=== PATIENT | male | born 1935 | race Caucasian/White ===

== ENCOUNTER 2016-09-12 18:33 | Inpatient (IN) | payer MEDICARE, OTHER ==
[~2016-09-12] VITALS: Ht 180.3 cm; Wt 81.6 kg
[~2016-09-12 18:33] MED LIST: ASPI81TA82 PO; CLON0.5T PO; CYMB60CA PO; DOCU1CAP39 PO; FINA5TAB77 PO; FLAG500T PO; GNP3TAB PO; HYDR-3533 PO; LISI2.5T55 PO; LOPE2TAB3 PO; METO25 PO; OMEP20TA PO; POLY119S PO; REME15TA PO; SILV1CRE59 TOP; SIMV20 PO; SUPETAB30 PO; TIMO0.5S29 EACH EYE; TRAV0.006 EACH EYE; VITA-13 PO; VITA-83 PO; ZINC220 PO
[2016-09-12 18:46] VITALS: BP 115/57; PULSE 80; RESP 16; TEMP 97.3; O2SAT 94
--- NOTE | 2016-09-12 18:47 | PD ---
HPI Chief Complaint: Respiratory Distress Time Seen by Provider: 18:47 Travel History International Travel<30 days: No Contact w/Intl Traveler<30days: No History of Present Illness HPI 81-year-old male with history of dementia, hypertension, hyperlipidemia is brought to the emergency room by EMS for evaluation of foreign body aspiration. Per EMS report the patient was eating food at his [facility] facility when he began to choke. Once EMS arrived on scene they perform the Heimlich maneuver and finger swipe technique which aided the patient to cough out the foreign body. Per EMS report he has been breathing without difficulty since the foreign body came out, oxygen saturation is of remained 94% on room air. The patient has dementia and is oriented to person only at baseline, per [facility] staff the patient is currently at his mental status baseline. He is confused and does not answer questions. He is unable to provide any meaningful history. PFSH Past Medical History Alzheimer's Disease: Yes Asthma: No Anxiety: Yes Depression: Yes Heart Rhythm Problems: No Cardiovascular Problems: Yes Chest Pain: No Congestive Heart Failure: No COPD: No Diabetes: No Diminished Hearing: Yes Endocrine: No Fibromyalgia: Yes GERD: Yes Glaucoma: Yes Genitourinary: Yes (PROSTATE) Hypertension: Yes Musculoskeletal: Yes (LAMINECTOMY) Neurologic: Yes (NEUROPATHY ) Psychiatric: No Thyroid Disease: No Past Surgical History Other Surgery: Yes (PENAL PROSTHETIC) Social History Alcohol Use: No Tobacco Use: No Allergies-Medications (Allergen,Severity, Reaction): Coded Allergies: No Known Allergies (Verified , 06/13/15) Reported Meds & Prescriptions Reported Meds & Active Scripts Active Reported Lortab (Hydrocodone-Acetaminophen) 5-325 Mg Tab 1 Tab PO Q4H PRN Ivermectin 3 Mg Tab 1 Tab PO DAILY Hydroxyzine HCl 25 Mg Tab 25 Mg PO TID PRN Elimite Topical (Permethrin) 5% Cream 1 Applic TOPICAL ONCE Benadryl Allergy (Diphenhydramine HCl) 25 Mg Tab 25 Mg PO Q6H PRN Depakote Sprinkles (Divalproex Sodium) 125 mg Cap 125 Mg PO TID Metoprolol Tartrate 25 Mg Tab 25 Mg PO BID Clonazepam 0.5 Mg Tab 0.5 Mg PO BID Vitamin B-6 (Pyridoxine HCl) 200 Mg Tab 200 Mg PO DAILY Trazodone (Trazodone HCl) 150 Mg Tab 150 Mg PO HS Travatan Z Opth Drops (Travoprost) 0.004 % Soln 1 Drop EACH EYE HS Timolol Opth Drops 0.5 % Soln 1 Drop EACH EYE BID Simvastatin 20 Mg Tab 20 Mg PO DAILY Prednisone 10 Mg Tab 10 Mg PO DAILY Potassium Chloride Liq (Potassium Chloride) 20 Meq/15 Ml Soln 20 Meq PO DAILY Miralax Powder (Polyethylene Glycol 3350 Powder) 17 Gm Powd 17 Gm PO DAILY Mix and dissolve one measuring cap-ful (17 grams) in water or juice. Multiple Vitamin 1 Tab 1 Tab PO DAILY Melatonin 5 Mg Tab 3 Mg PO HS Lasix (Furosemide) 40 Mg Tab 40 Mg PO DAILY Finasteride 5 Mg Tab 5 Mg PO DAILY Do not crush. Cymbalta DR (Duloxetine HCl) 60 Mg Capdr 60 Mg PO DAILY Colchicine 0.6 Mg Cap 0.6 Mg PO DAILY Colace (Docusate Sodium) 100 Mg Cap 100 Mg PO BID PRN Vitamin D (Cholecalciferol) 1,000 Unit Tab 2,000 Units PO DAILY Aspirin 81 Mg Chew 81 Mg CHEW DAILY Review of Systems ROS Limitations: Poor Historian Physical Exam Exam Limitations: Poor Historian (dementia) Narrative GENERAL: Well-nourished and well-developed elderly male patient in no acute distress. SKIN: Warm and dry without any obvious rashes or lesions. HEAD: Normocephalic and atraumatic. EYES: No injection, drainage, or hyphema noted. PERRLA. EOMI. ENT: No nasal drainage noted. Oropharynx is clear. NECK: Supple and the trachea is midline. CARDIOVASCULAR: Regular rate and rhythm. RESPIRATORY: Decreased breath sounds throughout, although poor patient effort. No accessory muscle use, wheezing, rhonchi, or crackles. GASTROINTESTINAL: Abdomen is soft, non-tender, and nondistended. MUSCULOSKELETAL: No obvious deformities, swelling, cyanosis, or ecchymosis is present throughout the upper and lower extremities. NEUROLOGICAL: Awake. Normal speech and gait. Cranial nerves are grossly intact. Data Data Last Documented VS Vital Signs Date Time Temp Pulse Resp B/P Pulse Ox O2 Delivery O2 Flow Rate FiO2 09/12/16 21:12 70 20 86/52 98 Nasal Cannula 5 09/12/16 18:51 98.5 Orders Electrocardiogram (09/12/16 18:46) Chest, Pa & Lat (09/12/16 18:46) Soft Tissue Neck (09/12/16 ) Complete Blood Count With Diff (09/12/16 19:09) Comprehensive Metabolic Panel (09/12/16 19:09) Iv Access Insert/Monitor (09/12/16 19:09) Ecg Monitoring (09/12/16 19:09) Oximetry (09/12/16 19:09) Sodium Chloride 0.9% Flush (Ns Flush) (09/12/16 19:15) B-Type Natriuretic Peptide (09/12/16 19:31) Troponin I (09/12/16 18:45) Urinalysis - C+S If Indicated (09/12/16 20:46) Cath For Specimen (09/12/16 20:57) Ct Thorax/ Chest W Iv Contrast (09/12/16 21:13) Ct Brain W/O Iv Contrast(Rout) (09/12/16 21:13) Ct Soft Tiss Neck W/O Iv Cont (09/12/16 ) Labs Laboratory Tests Test 09/12/16 18:45 White Blood Count 16.1 TH/MM3 Red Blood Count 4.78 MIL/MM3 Hemoglobin 13.5 GM/DL Hematocrit 40.7 % Mean Corpuscular Volume 85.2 FL Mean Corpuscular Hemoglobin 28.2 PG Mean Corpuscular Hemoglobin 33.1 % Concent Red Cell Distribution Width 13.4 % Platelet Count 357 TH/MM3 Mean Platelet Volume 8.8 FL Neutrophils (%) (Auto) 53.5 % Lymphocytes (%) (Auto) 32.2 % Monocytes (%) (Auto) 7.4 % Eosinophils (%) (Auto) 6.5 % Basophils (%) (Auto) 0.4 % Neutrophils # (Auto) 8.6 TH/MM3 Lymphocytes # (Auto) 5.2 TH/MM3 Monocytes # (Auto) 1.2 TH/MM3 Eosinophils # (Auto) 1.0 TH/MM3 Basophils # (Auto) 0.1 TH/MM3 CBC Comment AUTO DIFF Differential Total Cells 100 Counted Neutrophils % (Manual) 52 % Band Neutrophils % 1 % Lymphocytes % 31 % Monocytes % 7 % Eosinophils % 5 % Basophils % 1 % Neutrophils # (Manual) 9.0 TH/MM3 Metamyelocytes 1 % Myelocytes 2 % Differential Comment FINAL DIFF MANUAL Platelet Estimate HIGH Platelet Morphology Comment NORMAL Red Cell Morphology Comment NORMAL Sodium Level 140 MEQ/L Potassium Level 4.5 MEQ/L Chloride Level 103 MEQ/L Carbon Dioxide Level 23.9 MEQ/L Anion Gap 13 MEQ/L Blood Urea Nitrogen 30 MG/DL Creatinine 1.97 MG/DL Estimat Glomerular Filtration 33 ML/MIN Rate Random Glucose 157 MG/DL Calcium Level 8.4 MG/DL Total Bilirubin 0.5 MG/DL Aspartate Amino Transf 40 U/L (AST/SGOT) Alanine Aminotransferase 35 U/L (ALT/SGPT) Alkaline Phosphatase 75 U/L Troponin I LESS THAN 0.02 NG/ML B-Type Natriuretic Peptide 42 PG/ML Total Protein 7.7 GM/DL Albumin 3.5 GM/DL [facility] Medical Decision Making Medical Screen Exam Complete: Yes Emergency Medical Condition: Yes Differential Diagnosis Foreign body aspiration versus aspiration pneumonia versus food bolus Narrative Course 81-year-old male is brought to the emergency department for evaluation status post foreign body aspiration with removal through Heimlich maneuver. Patient is afebrile, vital signs are stable. Labs have been ordered and are pending. Chest x-ray as well as x-ray of the neck has been ordered. Chest x-ray shows mild pulmonary edema, otherwise unremarkable. Soft tissue x-ray of the neck is unremarkable. CBC shows elevated white blood cell count of 16.1, likely stress reaction. CMP shows renal insufficiency with a creatinine of 1.97, even 30, GFR 33. This is elevated from previous lab values at our facility there were performed a year ago. Troponin is less than 0.02. BNP is 42. 2035 The patient's family member arrives to room and reports patient is much more confused than his baseline. Reports he is normally conversant - admits he is not oriented to time or place typically. My attending physician Dr. Vsaquez spoke with Antolin the nurse in charge over at the patient's [place] [facility] facility who reports that the patient was eating and began to choke, stating he became apneic and cyanotic for a few minutes until EMS performed the Heimlich maneuver and he spit up about a quarter sized amount of food. Antolin also agrees that the patient is slightly more altered than his baseline. A head CT and urinalysis have also been added to the work-up. The patient has had a possible apneic event secondary to foreign body aspiration and has altered mental status from his baseline. His renal function is noted to be slightly elevated, it is unclear whether this is acute or subacute as the patient does take Lasix 40 mg daily for lower extremity edema. He doesn't have any anion gap or change in bicarb to suggest a cardiac event. He likely suffered temporary hypoxia secondary to foreign body aspiration. In any event, he is altered, his renal function is elevated, and his chest x-ray reveals pulmonary edema. 2100 Patient having hemoptysis and his blood pressure has dropped. Care of patient assumed by my attending physician Dr. Vasquez. Hali Snow Sep 12, 2016 18:47
[2016-09-12 18:51] VITALS: BP 115/57; PULSE 79; RESP 18; TEMP 98.5; O2SAT 95
--- NOTE | 2016-09-12 18:55 | PD ---
Physical Exam Date Seen by Provider: Sep 12, 2016 Narrative I, Dr. Dean, have reviewed the advance practice practitioner's documentation and am in agreement, met with the patient face to face, made the diagnosis, and the medical decision making was done by me. *My assessment and Findings: The patient is resting comfortably on the stretcher with no respiratory distress. Data Data Last Documented VS Vital Signs Date Time Temp Pulse Resp B/P Pulse Ox O2 Delivery O2 Flow Rate FiO2 09/12/16 18:51 79 18 94 Non-Rebreather 6 09/12/16 18:46 97.3 115/57 Orders Electrocardiogram (09/12/16 18:46) Chest, Pa & Lat (09/12/16 18:46) MDM Supervised Visit with PATRICIA: Yes Keyla Dean MD Sep 12, 2016 18:55
[2016-09-12] MEDS ORDERED: SODIUM CHLORIDE 0.9% FLUSH 5 ML FLUSH IVF PRN (19:15)
[2016-09-12 19:22] LABS: AUTOMATED NEUTROPHIL # 8.6 TH/MM3 (1.8-7.7); BASOPHIL # 0.1 TH/MM3 (0-0.2); BASOPHIL % 0.4 % (0.0-2.0); EOSINOPHIL % 6.5 % (0.0-4.0); HEMATOCRIT 40.7 % (39.0-51.0); LYMPH % 32.2 % (9.0-44.0); LYMPHOCYTE # 5.2 TH/MM3 (1.0-4.8); MEAN CELL VOLUME 85.2 FL (80.0-100.0); MEAN CORPUSCULAR HEMOGLOBIN 28.2 PG (27.0-34.0); MEAN CORPUSCULAR HGB CONC 33.1 % (32.0-36.0); MONO % 7.4 % (0.0-8.0); NEUT % 53.5 % (16.0-70.0); PLATELET COUNT 357 TH/MM3 (150-450); RED BLOOD COUNT 4.78 MIL/MM3 (4.50-5.90); RED CELL DISTRIBUTION WIDTH 13.4 % (11.6-17.2); WHITE BLOOD COUNT 16.1 TH/MM3 (4.0-11.0)
--- NOTE | 2016-09-12 19:26 | RADRPT ---
EXAM DATE/TIME: 09/12/2016 19:09 [facility] COMPARISON: No previous studies available for comparison. INDICATIONS : Possible foreign body, aspiration MEDICAL HISTORY : Hypertension. Alzheimers SURGICAL HISTORY : None. ENCOUNTER: Initial ACUITY: 1 day PAIN SCORE: 3/10 LOCATION: Bilateral chest FINDINGS: Hazy infiltrates seen diffusely of both lungs suggesting mild pulmonary edema. Heart size upper limit s of normal. No dense or confluent consolidation. No large effusion seen. No pneumothorax. CONCLUSION: Mild pulmonary edema. Danie Vera MD on September 12, 2016 at 19:25 Board Certified Radiologist. This report was verified electronically.
--- NOTE | 2016-09-12 19:29 | RADRPT ---
EXAM DATE/TIME: 09/12/2016 19:11 [facility] COMPARISON: No previous studies available for comparison. INDICATIONS : Possible Foreign Body, Aspiration MEDICAL HISTORY : Hypertension. Alzheimers SURGICAL HISTORY : None. ENCOUNTER: Initial ACUITY: One day PAIN SCORE: 4/10 LOCATION: Bilateral neck FINDINGS: Two view examination of the soft tissues of the neck demonstrates the hypopharyngeal airway to have a grossly normal configuration. The trachea is midline. No radiopaque foreign bodies are seen. There is severe anterior spurring of the cervical spine at C3/C4 and C4/C5. Atherosclerotic calcifica tion seen of both carotid bifurcations. CONCLUSION: No foreign body or other acute soft tissue abnormality demonstrated of the neck. Danie Vera MD on September 12, 2016 at 19:26 Board Certified Radiologist. This report was verified electronically.
[2016-09-12] MEDS ORDERED: COLC1CAP3 PO (19:31)
[2016-09-12] MEDS ORDERED: HYDR-3533 PO (19:31)
[2016-09-12] MEDS ORDERED: TIMO0.5S30 EACH EYE (19:31)
[2016-09-12] MEDS ORDERED: FURO1TAB60 PO (19:31)
[2016-09-12] MEDS ORDERED: FINA5TAB2 PO (19:31)
[2016-09-12] MEDS ORDERED: COLA100C3 PO (19:31)
[2016-09-12] MEDS ORDERED: ASPI81CH CHEW (19:31)
[2016-09-12] MEDS ORDERED: PERM5CRE11 TOPICAL (19:31)
[2016-09-12] MEDS ORDERED: BENA25TA3 PO (19:31)
[2016-09-12] MEDS ORDERED: HYDR-3133 PO (19:31)
[2016-09-12] MEDS ORDERED: PYRI1TAB2 PO (19:31)
[2016-09-12] MEDS ORDERED: TRAV0.00 EACH EYE (19:31)
[2016-09-12] MEDS ORDERED: METO25TA3 PO (19:31)
[2016-09-12] MEDS ORDERED: SIMV20TA PO (19:31)
[2016-09-12] MEDS ORDERED: IVER5TAB PO (19:31)
[2016-09-12] MEDS ORDERED: MIRA33504 PO (19:31)
[2016-09-12] MEDS ORDERED: PRED10 PO (19:31)
[2016-09-12] MEDS ORDERED: TRAZ150T75 PO (19:31)
[2016-09-12] MEDS ORDERED: VITA100064 PO (19:31)
[2016-09-12] MEDS ORDERED: DIVA125C PO (19:31)
[2016-09-12] MEDS ORDERED: CYMB60CA PO (19:31)
[2016-09-12] MEDS ORDERED: MULTTAB67 PO (19:31)
[2016-09-12] MEDS ORDERED: CLON0.5T PO (19:31)
[2016-09-12] MEDS ORDERED: POTA10SO12 PO (19:31)
[2016-09-12] MEDS ORDERED: MELA5TAB15 PO (19:31)
[2016-09-12 19:41] LABS: HEMO FLAGS AUTO DIFF
[2016-09-12 19:55] LABS: ANION GAP 13 MEQ/L (5-15); AST (GOT) 40 U/L (15-37); BICARBONATE 23.9 MEQ/L (21.0-32.0); BLOOD UREA NITROGEN 30 MG/DL (7-18); CHLORIDE 103 MEQ/L (98-107); GLOMERULAR FILTRATION RATE 33 ML/MIN (>89); POTASSIUM 4.5 MEQ/L (3.5-5.1); SODIUM (NA) 140 MEQ/L (136-145)
[2016-09-12 20:00] VITALS: BP 88/54; PULSE 78; RESP 20; O2SAT 96
[2016-09-12 20:00] LABS: ALKALINE PHOSPHATASE 75 U/L (45-117); ALT (GPT) 35 U/L (12-78); TOTAL BILIRUBIN ADULT 0.5 MG/DL (0.2-1.0)
[2016-09-12 20:30] LABS: BANDS 1 % (0-6); BASOPHILS 1 % (0-2); EOSINOPHILS 5 % (0-4); METAMYELOCYTES 1 % (0-1); MYELOCYTES 2 % (0-0); POLYS (SEG NEUTROPHILS) 52 % (16-70); WBC DIFF SAMPLE 100
[2016-09-12 20:31] LABS: PLATELET ESTIMATE SMEAR HIGH (NORMAL); PLATELET MORPHOLOGY NORMAL (NORMAL); SCAN/DIFF FINAL DIFF MANUAL
[2016-09-12 21:00] VITALS: BP 68/45; PULSE 76; RESP 20; O2SAT 94
[2016-09-12 21:12] VITALS: BP 86/52; PULSE 70; RESP 20; O2SAT 95; O2SAT 98
[2016-09-12 21:25] VITALS: BP 85/50; PULSE 72; RESP 18; O2SAT 96
[2016-09-12] MEDS ORDERED: PIPERACIL-TAZO 2.25 GM PREMIX 50 ML IV ONE (21:30)
[2016-09-12] MEDS ORDERED: PANTOPRAZOLE INJ 80 MG in SODIUM CHLORIDE 0.9% INJ 35 ML IV ONE (21:30)
[2016-09-12] MEDS ORDERED: SODIUM CHLOR 0.9% 250 ML INJ 250 ML IV ONE (21:30)
[2016-09-12] MEDS ORDERED: VANCOMYCIN INJ 1,500 MG in SODIUM CHLORID 0.9% 500 ML INJ 500 ML IV SCH (21:30)
[2016-09-12] MEDS ORDERED: PANTOPRAZOLE INJ 80 MG in SODIUM CHLORIDE 0.9% INJ 100 ML IV SCH (21:30)
--- NOTE | 2016-09-12 21:32 | PD ---
Data Data Last Documented VS Vital Signs Date Time Temp Pulse Resp B/P Pulse Ox O2 Delivery O2 Flow Rate FiO2 09/12/16 21:25 72 18 85/50 96 Nasal Cannula 5 09/12/16 18:51 98.5 Orders Electrocardiogram (09/12/16 18:46) Chest, Pa & Lat (09/12/16 18:46) Soft Tissue Neck (09/12/16 ) Complete Blood Count With Diff (09/12/16 19:09) Comprehensive Metabolic Panel (09/12/16 19:09) Iv Access Insert/Monitor (09/12/16 19:09) Ecg Monitoring (09/12/16 19:09) Oximetry (09/12/16 19:09) Sodium Chloride 0.9% Flush (Ns Flush) (09/12/16 19:15) B-Type Natriuretic Peptide (09/12/16 19:31) Troponin I (09/12/16 18:45) Urinalysis - C+S If Indicated (09/12/16 20:46) Cath For Specimen (09/12/16 20:57) Ct Thorax/ Chest W Iv Contrast (09/12/16 21:13) Ct Brain W/O Iv Contrast(Rout) (09/12/16 21:13) Ct Soft Tiss Neck W/O Iv Cont (09/12/16 ) Type And Screen (09/12/16 21:18) Blood Product Administration .UPON TRANSFUSION (09/12/16 21:18) Sodium Chlor 0.9% 250 Ml Inj (Ns 250 Ml (09/12/16 21:30) Piperacil-Tazo 2.25 Gm Premix (Zosyn 2.2 (09/12/16 21:30) Vancomycin Inj (Vancomycin Inj) (09/12/16 21:30) NPO (09/12/16 21:29) Pantoprazole Inj (Protonix Inj) (09/12/16 21:30) Pantoprazole Inj (Protonix Inj) (09/12/16 21:30) Lactic Acid (09/12/16 21:32) Iodixanol 320 Inj (Rad Ct) (Visipaque 32 (09/12/16 22:11) Urine Culture (09/12/16 22:45) Coag Profile (09/12/16 23:27) Admit Order (Ed Use Only) (09/12/16 23:43) Labs Laboratory Tests Test 09/12/16 09/12/16 09/12/16 18:45 21:20 22:45 White Blood Count 16.1 TH/MM3 Red Blood Count 4.78 MIL/MM3 Hemoglobin 13.5 GM/DL Hematocrit 40.7 % Mean Corpuscular Volume 85.2 FL Mean Corpuscular Hemoglobin 28.2 PG Mean Corpuscular Hemoglobin 33.1 % Concent Red Cell Distribution Width 13.4 % Platelet Count 357 TH/MM3 Mean Platelet Volume 8.8 FL Neutrophils (%) (Auto) 53.5 % Lymphocytes (%) (Auto) 32.2 % Monocytes (%) (Auto) 7.4 % Eosinophils (%) (Auto) 6.5 % Basophils (%) (Auto) 0.4 % Neutrophils # (Auto) 8.6 TH/MM3 Lymphocytes # (Auto) 5.2 TH/MM3 Monocytes # (Auto) 1.2 TH/MM3 Eosinophils # (Auto) 1.0 TH/MM3 Basophils # (Auto) 0.1 TH/MM3 CBC Comment AUTO DIFF Differential Total Cells 100 Counted Neutrophils % (Manual) 52 % Band Neutrophils % 1 % Lymphocytes % 31 % Monocytes % 7 % Eosinophils % 5 % Basophils % 1 % Neutrophils # (Manual) 9.0 TH/MM3 Metamyelocytes 1 % Myelocytes 2 % Differential Comment FINAL DIFF MANUAL Platelet Estimate HIGH Platelet Morphology Comment NORMAL Red Cell Morphology Comment NORMAL Sodium Level 140 MEQ/L Potassium Level 4.5 MEQ/L Chloride Level 103 MEQ/L Carbon Dioxide Level 23.9 MEQ/L Anion Gap 13 MEQ/L Blood Urea Nitrogen 30 MG/DL Creatinine 1.97 MG/DL Estimat Glomerular Filtration 33 ML/MIN Rate Random Glucose 157 MG/DL Calcium Level 8.4 MG/DL Total Bilirubin 0.5 MG/DL Aspartate Amino Transf 40 U/L (AST/SGOT) Alanine Aminotransferase 35 U/L (ALT/SGPT) Alkaline Phosphatase 75 U/L Troponin I LESS THAN 0.02 NG/ML B-Type Natriuretic Peptide 42 PG/ML Total Protein 7.7 GM/DL Albumin 3.5 GM/DL Lactic Acid Level 3.4 mmol/L Blood Type B POSITIVE Antibody Screen NEGATIVE Blood Bank Comment Urine Color YELLOW Urine Turbidity CLEAR Urine pH 5.5 Urine Specific [place] 1.013 Urine Protein 30 mg/dL Urine Glucose (UA) NEG mg/dL Urine Ketones NEG mg/dL Urine Occult Blood NEG Urine Nitrite NEG Urine Bilirubin NEG Urine Urobilinogen LESS THAN 2.0 MG/DL Urine Leukocyte Esterase MOD Urine RBC 2 /hpf Urine WBC 19 /hpf Urine WBC Clumps RARE Urine Squamous Epithelial <1 /hpf Cells Urine Bacteria OCC /hpf Urine Hyaline Casts 5 /lpf Microscopic Urinalysis Comment CULTURE INDICATED MDM Medical Record Reviewed: Yes Supervised Visit with PATRICIA: Yes Interpretation(s) CBC & BMP Diagram 09/12/16 18:45 LFTs normal Tn < 0.02 BNP 42 Lactic acid 3.4 Troponin 1.0 Urinalysis UTI present Last [address] 09/12/162112 Signed Impressions: Service Date/Time: Monday, September 12, 2016 22:00 - CONCLUSION: No acute intracranial abnormality. Moderate ventriculomegaly again noted, stable. Chronic right-sided sinusitis. Danie Vera MD Chest CT 09/12/162112 Signed Impressions: Service Date/Time: Monday, September 12, 2016 22:09 - CONCLUSION: 1. Patchy alveolar infiltrates of both lungs, nonspecific. Aspiration, noncardiogenic pulmonary edema and pulmonary hemorrhage would be in the differential. 2. No pneumothorax or pneumomediastinum. 3. Coronary artery calcification. Danie Vera MD Chest X-Ray 09/12/16 1846 Signed Impressions: Service Date/Time: Monday, September 12, 2016 19:09 - CONCLUSION: Mild pulmonary edema. Danie Vera MD Soft Tissue Neck X-Ray 09/12/16 0000 Signed Impressions: Service Date/Time: Monday, September 12, 2016 19:11 - CONCLUSION: No foreign body or other acute soft tissue abnormality demonstrated of the neck. Danie Vera MD Neck CT 09/12/16 0000 Signed Impressions: Service Date/Time: Monday, September 12, 2016 22:00 - CONCLUSION: Neck soft tissues within normal limits. Danie Vera MD Narrative Course The patient was examined by me at about 7:30 PM. At that time he was awake and alert to himself. He is able to answer questions appropriately. He at baseline is unaware of the day or his location. Nonetheless according to the former and according to [facility] personnel the patient is somewhat talkative and able to partake in conversations normally. He is otherwise wheelchair-bound, incontinent of stool and has been choking while eating for the past several months. According to the nurse at his SNF the patient was eating dinner at around 6:30 PM and while trying to drink a glass of liquid accidentally spilled it upon himself. He was approached and was unable to speak. He nodded his head stating he did not feel right. The patient then became unresponsive. CPR followed shortly thereafter for approximately 10 minutes. Multiple attempts at a Heimlich maneuver were performed unsuccessfully. When EMS arrived a small bolus of food was removed with a finger sweep and then a copious volume of secretions were collected. The patient according to the [facility] RN pt was unresponsive and apparently cyanotic for about 10 minutes or so. When EMS arrived on scene the patient had a sinus rhythm and normal blood pressure. He was advised by RN personnel that the patient was at his baseline mental status. This information was passed along by EMS providers to me. Patient began vomiting or coughing up blood, bright red blood, multiple times while in the ER. He also had an episode of hypotension to about 60/30. We initiated crystalloid resuscitation. Lactic acid was drawn. Type and screen was drawn. Stat head neck and chest CTs were added as were broad-spectrum empiric antibiotics bilateral large bore IVs, Protonix while attending to the power of criminal defense attorney's needs. CT control room called at 21:30 for stat CTs. The patient's former informed me that he is a DNR. Fortunately the patient had a good response to 500 cc normal saline. In the ER, a course of at least 5 hours, the blood pressure improved to about 120 somewhat gradually. Episodes of hemoptysis resolved as well. Critical Care Narrative Aggregate critical care time was 90 minutes. Time to perform other separately billable procedures was not included in the critical care time. My time did not include minutes spent treating any other patients simultaneously or on activities that did not directly contribute to the patient's treatment. The services I provided to this patient were to treat and/or prevent clinically significant deterioration that could result in: cardioPulmonary arrest, hypoxia I provided critical care services requiring my management, as noted below: Chart data review, documentation time, medication orders and management, vital sign assessments/reviewing monitor data, ordering and reviewing lab tests, ordering and interpreting/reviewing x-rays and diagnostic studies, care of the patient and discussion of the patient with the admitting physicians. Critical care Sepsis Criteria Severe Sepsis (+one): Hypotension, Lactate >2 Diagnosis Primary Impression: Cardiopulmonary arrest Additional Impressions: Hypoxic episode Pulmonary hemorrhage UTI (urinary tract infection) Qualified Code: N39.0 - Urinary tract infection without hematuria, site unspecified Admitting Information Admitting Physician Requests: Admit Efrem Vasquez MD Sep 12, 2016 21:32
[2016-09-12] MEDS ORDERED: IODIXANOL 320 MG/ML 10 ML VIAL (for Rad CT) IV ONE (22:11)
--- NOTE | 2016-09-12 22:23 | RADRPT ---
EXAM DATE/TIME: 09/12/2016 22:00 [facility] COMPARISON: CT BRAIN W/O CONTRAST, June 13, 2015, 17:22. INDICATIONS : Altered mental status. RADIATION DOSE: 61.74 CTDIvol (mGy) MEDICAL HISTORY : Hypertension. Alzheimer's. Fibromyalgia. SURGICAL HISTORY : None. ENCOUNTER: Initial ACUITY: 1 day PAIN SCALE: 0/10 LOCATION: cranial TECHNIQUE: Multiple contiguous axial images were obtained of the head. Using automated exposure control and adj ustment of the mA and/or kV according to patient size, radiation dose was kept as low as reasonably a chievable to obtain optimal diagnostic quality images. FINDINGS: CEREBRUM: Moderate ventriculomegaly again noted, unchanged. No evidence of midline shift, mass lesion, hemorrh age or acute infarction. No extra-axial fluid collections are seen. POSTERIOR FOSSA: The cerebellum and brainstem are intact. The 4th ventricle is midline. The cerebellopontine angle i s unremarkable. EXTRACRANIAL: Partly opacified right ethmoid and maxillary air cells, similar to before. SKULL: The calvaria is intact. No evidence of skull fracture. CONCLUSION: No acute intracranial abnormality. Moderate ventriculomegaly again noted, stable. Chronic right-sided sinusitis. Danie Vera MD on September 12, 2016 at 22:20 Board Certified Radiologist. This report was verified electronically.
--- NOTE | 2016-09-12 22:24 | RADRPT ---
EXAM DATE/TIME: 09/12/2016 22:00 [facility] COMPARISON: No previous studies available for comparison. INDICATIONS : Choked and food was dislodged. Currently having hemoptysis. RADIATION DOSE: 16.32 CTDIvol (mGy) MEDICAL HISTORY : Hypertension. Alzheimer's. Fibromyalgia. SURGICAL HISTORY : None. ENCOUNTER: Initial ACUITY: 1 day PAIN SCORE: 1/10 LOCATION: neck TECHNIQUE: Volumetric scanning of the neck was performed. Using automated exposure control and adjustment of th e mA and/or kV according to patient size, radiation dose was kept as low as reasonably achievable to obtain optimal diagnostic quality images. FINDINGS: NASOPHARYNX: The nasopharyngeal airway has a normal configuration. No mucosal thickening or mass is seen. OROPHARYNX: The intrinsic muscles of the tongue are symmetric. The tonsillar pillars are intact. The prevertebr al soft tissues are not thickened. LARYNX: The supraglottic, glottic, and infraglottic structures are intact. PARAPHARYNGEAL: The parapharyngeal space is intact. SALIVARY GLANDS: The parotid and submandibular glands are intact. LYMPH NODES: No enlarged or necrotic-appearing nodes. THYROID: Homogeneous enhancement without evidence of nodule. BONES: Unremarkable. CONCLUSION: Neck soft tissues within normal limits. Danie Vera MD on September 12, 2016 at 22:22 Board Certified Radiologist. This report was verified electronically.
--- NOTE | 2016-09-12 22:42 | RADRPT ---
EXAM DATE/TIME: 09/12/2016 22:09 [facility] COMPARISON: No previous studies available for comparison. INDICATIONS : Choked and food was dislodged. Currently having hemoptysis and chest pain. IV CONTRAST: 46 cc Visipaque (iodixanol) IV RADIATION DOSE: 7.72 CTDIvol (mGy) MEDICAL HISTORY : Hypertension. Alzheimer's. Fibromyalgia. SURGICAL HISTORY : None. ENCOUNTER: Initial ACUITY: 1 day PAIN SCALE: 8/10 LOCATION: chest TECHNIQUE: Volumetric scanning of the chest was performed. Using automated exposure control and adjustment of t he mA and/or kV according to patient size, radiation dose was kept as low as reasonably achievable to obtain optimal diagnostic quality images. FINDINGS: Patchy alveolar infiltrates are seen scattered throughout both lungs. There is dependent consolidatio n of both bases. No pleural effusion seen. No pneumothorax. There is no mediastinal, hilar or axillary lymphadenopathy. No pneumomediastinum. Heart size normal. There is right and left-sided coronary artery calcification noted. CONCLUSION: 1. Patchy alveolar infiltrates of both lungs, nonspecific. Aspiration, noncardiogenic pulmonary edema and pulmonary hemorrhage would be in the differential. 2. No pneumothorax or pneumomediastinum. 3. Coronary artery calcification. Danie Vera MD on September 12, 2016 at 22:37 Board Certified Radiologist. This report was verified electronically.
[2016-09-12 23:20] LABS: BACTERIA, URINE OCC /hpf; BLOOD, URINE NEG (NEG); COMMENT (UR) CULTURE INDICATED; CULTURE IF INDICATED CULTURE INDICATED; GLUCOSE,URINE NEG (NEG); HYALINE CAST, URINE 5 /lpf (RARE); KETONE, URINE NEG (NEG); NITRITE,URINE NEG (NEG); PH, URINE 5.5 (5.0-8.5); SQUAMOUS EPITHELIAL CELL URINE <1 /hpf (0-5); URINE COLOR YELLOW (YELLW/STRAW)
[2016-09-13] VITALS (17 sets, daily range): BP systolic 101–153; BP diastolic 52–73; PULSE 56–93; RESP 14–22; TEMP 98.7–99.4; O2SAT 93–97
[2016-09-13 00:48] LABS: APTT (PATIENT) 26.9 SEC (24.3-30.1); PROTHROMBIN TIME - PATIENT 11.4 SEC (9.8-11.6)
[2016-09-13] MEDS ORDERED: ONDANSETRON HCL 4 MG/2 ML VIAL IV PRN (05:15)
[2016-09-13] MEDS ORDERED: SODIUM CHLORIDE 0.9% FLUSH 5 ML FLUSH IV FLUSH PRN (05:15)
[2016-09-13] MEDS ORDERED: RESP: ALBUTEROL 2.5 MG/3 ML NEB (PRN) INH (05:15)
[2016-09-13] MEDS ORDERED: CHLORHEXIDINE GLUCONATE 2 % 1 PACK (2 CLOTHS) TOP PRN (05:15)
[2016-09-13] MEDS ORDERED: MISCELLANEOUS NURSING INFORMATION XX SCH (05:15)
[2016-09-13] MEDS: SODIUM CHLOR 0.9% 1000 ML INJ 1,000 ML IV SCH ×2 (05:39→17:03)
[2016-09-13 05:53] LABS: AUTOMATED NEUTROPHIL # 16.6 TH/MM3 (1.8-7.7); BASOPHIL % 0.2 % (0.0-2.0); HEMATOCRIT 37.2 % (39.0-51.0); HEMO FLAGS DIFF FINAL; LYMPH % 6.6 % (9.0-44.0); LYMPHOCYTE # 1.2 TH/MM3 (1.0-4.8); MEAN CELL VOLUME 85.1 FL (80.0-100.0); MEAN CORPUSCULAR HEMOGLOBIN 28.3 PG (27.0-34.0); MEAN CORPUSCULAR HGB CONC 33.3 % (32.0-36.0); MONO % 4.9 % (0.0-8.0); NEUT % 88.3 % (16.0-70.0); PLATELET COUNT 284 TH/MM3 (150-450); RED BLOOD COUNT 4.36 MIL/MM3 (4.50-5.90); RED CELL DISTRIBUTION WIDTH 13.6 % (11.6-17.2); WHITE BLOOD COUNT 18.8 TH/MM3 (4.0-11.0)
[2016-09-13] MEDS ORDERED: PIPERACIL-TAZO 2.25 GM PREMIX 50 ML IV SCH (06:00)
[2016-09-13 06:17] LABS: ALKALINE PHOSPHATASE 57 U/L (45-117); TOTAL BILIRUBIN ADULT 0.7 MG/DL (0.2-1.0)
[2016-09-13 06:23] LABS: ALT (GPT) 35 U/L (12-78); ANION GAP 9 MEQ/L (5-15); AST (GOT) 39 U/L (15-37); BICARBONATE 26.1 MEQ/L (21.0-32.0); BLOOD UREA NITROGEN 31 MG/DL (7-18); CHLORIDE 109 MEQ/L (98-107); GLOMERULAR FILTRATION RATE 33 ML/MIN (>89); SODIUM (NA) 144 MEQ/L (136-145)
[2016-09-13 06:24] LABS: POTASSIUM 4.9 MEQ/L (3.5-5.1)
--- NOTE | 2016-09-13 06:49 | HHI.HP ---
HPI Service Critical Care Medicine Primary Care Physician Hung Turk MD Admission Diagnosis Cardiopulmonary Arrest, Pulm Edema/Hemorrhage Diagnosis: Travel History International Travel<30 Days: No Contact w/Intl Traveler <30 Da: No Traveled to Known Affected Are: No History of Present Illness 81 yo WM with past medical history of Alzheimer's, hypertension, hyperlipidemia who presents to [facility] after a choking episode. Apparently he was eating dinner when he began to choke and then became unresponsive and required the Heimlich maneuver as well as some component of chest compressions as there was no palpable pulse. A food bolus was dislodged and he was subsequently responsive. He does have baseline confusion and is typically not oriented to place or time. His ex- felt like he was more confused than typical after this episode. His SBP was initially in 60s to 80s on arrival but responded to 1 L NS bolus and he has subsequently been normotensive. He has had a couple of episodes of cough with hemoptysis reportedly about 10-[address] shows patcy bilateral infiltrates which most likely represents negative pressure pulmonary edema. He is on 2 L NC with sats 99%. [facility] has been consulted for admission. His ex- is his healthcare surrogate and she states that he has had dysphagia that has been progressive over the last year and has intermittently been on modified diet. However, she states he had been taken off of thickened liquids and was back on a "more regular diet". He feeds himself but she states he has had multiple episodes of choking "but never that bad". She states that he previously had a DNR and she feels that he would not have wanted resuscitation. She states his quality of life has been going downhill and that when "he was in his right mind he said he never wanted to live like this". She statese code status should be changed to DNR. Review of Systems Cardiovascular: COMPLAINS OF: Chest pain Past Family Social History Allergies: Coded Allergies: No Known Allergies (Verified , 06/13/15) Past Medical History Alzheimer's disease Hypertension Hyperlipidemia Constipation He is on Depakote for behavior. No history of seizures. BPH Past Surgical History Bilateral hip replacement Penile implant Lumbar discectomy Reported Medications Finasteride 5 mill grams by mouth daily Prednisone 10 mg by mouth daily Ivermectin 3 mg by mouth daily Depakote 125 mg by mouth 3 times a day Cymbalta 60 g by mouth daily Trazodone 150 mg by mouth daily at bedtime Colchicine 0.6 mill grams by mouth daily Hydroxyzine 25 mg by mouth 3 times a day Clonazepam 0.5 mill grams by mouth twice a day Atenolol 1 drop each eye twice a day Metoprolol 25 mg by mouth twice a day Colace 100 mg by mouth twice a day MiraLAX 17 g by mouth daily Benadryl 25 mill grams by mouth every 6 hours when necessary Simvastatin 20 mill grams by mouth daily Lasix 40 mill grams by mouth daily Multivitamin 1 tab by mouth daily Aspirin 81 mill grams daily Lortab 5/325 one by mouth every 4 hours when necessary pain Melatonin 3 mill grams by mouth daily at bedtime Travatan 1 drop each eye at bedtime Permethrin Family History No significant family medical history. Social History Alzheimer's was diagnosed about 5-6 years ago. Healthcare surrogate states that it advanced more quickly after he had a surgical procedure in May. He has been wheel chair bound and has had progressive pedal edema over the last 8 months for which he was started on lasix. He has been feeding himself but he has had some difficulty with self-feeding, spilling his food. He has had multiple choking episodes in the past but never required Heimlich. He is a nonsmoker He used to drink alcohol heavily but quit 10-12 years ago. He drinks about 5-6 vodka beverages a day. No illicit drug use. He is but his ex- Kimberly Chris is his healthcare surrogate. He has no children. Physical Exam Vital Signs Vital Signs Date Time Temp Pulse Resp B/P Pulse Ox O2 Delivery O2 Flow Rate FiO2 09/13/16 06:00 56 16 130/68 95 Nasal Cannula 2 09/13/16 05:00 89 14 105/55 96 Nasal Cannula 2 09/13/16 04:00 99.4 83 18 105/55 94 Nasal Cannula 2 09/13/16 03:00 88 14 105/52 96 Nasal Cannula 2 09/13/16 02:00 84 16 116/58 93 Nasal Cannula 2 09/13/16 01:00 80 16 127/60 94 Nasal Cannula 2 09/13/16 00:00 98.9 80 16 120/55 95 Nasal Cannula 2 09/12/16 21:25 72 18 85/50 96 Nasal Cannula 5 09/12/16 21:12 70 20 86/52 98 Nasal Cannula 5 09/12/16 21:00 76 20 68/45 94 Nasal Cannula 5 09/12/16 20:00 78 20 88/54 96 Nasal Cannula 5 09/12/16 18:51 79 18 94 Non-Rebreather 6 09/12/16 18:51 98.5 79 18 115/57 95 Room Air 09/12/16 18:46 97.3 80 16 115/57 94 Physical Exam Blood pressure 99/58 pulse 83 sat 99% on 2 L nasal cannula GENERAL: Elderly pleasant male who is confused. On nasal cannula. SKIN: Warm and dry. HEAD: Atraumatic. Normocephalic. EYES: Pupils equal and round. No scleral icterus. No injection or drainage. ENT: No nasal bleeding or discharge. NECK: Trachea midline. No JVD. CARDIOVASCULAR: Regular rate and rhythm. No murmurs rubs or gallops. RESPIRATORY: Clear to auscultation bilaterally. Breathing comfortably without accessory muscle use. On nasal cannula GASTROINTESTINAL: Abdomen soft, non-tender, nondistended. Bowel sounds present. : Diaper in place MUSCULOSKELETAL: Extremities without clubbing, cyanosis. Trace pedal edema NEUROLOGICAL: Awake and alert. He is oriented to self. He is not oriented to year or place. He thinks he is at work. He moves all extremities to command; lifts both legs off the bed to command with no apparent focal deficit. No obvious cranial nerve deficits. Normal speech. Laboratory Laboratory Tests Test 09/12/16 09/12/16 09/12/16 09/13/16 18:45 21:20 22:45 00:00 White Blood Count 16.1 Red Blood Count 4.78 Hemoglobin 13.5 Hematocrit 40.7 Mean Corpuscular Volume 85.2 Mean Corpuscular Hemoglobin 28.2 Mean Corpuscular Hemoglobin 33.1 Concent Red Cell Distribution Width 13.4 Platelet Count 357 Mean Platelet Volume 8.8 Neutrophils (%) (Auto) 53.5 Lymphocytes (%) (Auto) 32.2 Monocytes (%) (Auto) 7.4 Eosinophils (%) (Auto) 6.5 Basophils (%) (Auto) 0.4 Neutrophils # (Auto) 8.6 Lymphocytes # (Auto) 5.2 Monocytes # (Auto) 1.2 Eosinophils # (Auto) 1.0 Basophils # (Auto) 0.1 CBC Comment AUTO DIFF Differential Total Cells 100 Counted Neutrophils % (Manual) 52 Band Neutrophils % 1 Lymphocytes % 31 Monocytes % 7 Eosinophils % 5 Basophils % 1 Neutrophils # (Manual) 9.0 Metamyelocytes 1 Myelocytes 2 Differential Comment FINAL DIFF MANUAL Platelet Estimate HIGH Platelet Morphology Comment NORMAL Red Cell Morphology Comment NORMAL Sodium Level 140 Potassium Level 4.5 Chloride Level 103 Carbon Dioxide Level 23.9 Anion Gap 13 Blood Urea Nitrogen 30 Creatinine 1.97 Estimat Glomerular Filtration 33 Rate Random Glucose 157 Calcium Level 8.4 Total Bilirubin 0.5 Aspartate Amino Transf 40 (AST/SGOT) Alanine Aminotransferase 35 (ALT/SGPT) Alkaline Phosphatase 75 Troponin I LESS THAN 0.02 B-Type Natriuretic Peptide 42 Total Protein 7.7 Albumin 3.5 Lactic Acid Level 3.4 Blood Type B POSITIVE Antibody Screen NEGATIVE Blood Bank Comment Urine Color YELLOW Urine Turbidity CLEAR Urine pH 5.5 Urine Specific Colby 1.013 Urine Protein 30 Urine Glucose (UA) NEG Urine Ketones NEG Urine Occult Blood NEG Urine Nitrite NEG Urine Bilirubin NEG Urine Urobilinogen LESS THAN 2.0 Urine Leukocyte Esterase MOD Urine RBC 2 Urine WBC 19 Urine WBC Clumps RARE Urine Squamous Epithelial <1 Cells Urine Bacteria OCC Urine Hyaline Casts 5 Microscopic Urinalysis Comment CULTURE INDICATED Prothrombin Time 11.4 Prothromb Time International 1.0 Ratio Activated Partial 26.9 Thromboplast Time Test 09/13/16 05:10 White Blood Count 18.8 Red Blood Count 4.36 Hemoglobin 12.4 Hematocrit 37.2 Mean Corpuscular Volume 85.1 Mean Corpuscular Hemoglobin 28.3 Mean Corpuscular Hemoglobin 33.3 Concent Red Cell Distribution Width 13.6 Platelet Count 284 Mean Platelet Volume 8.7 Neutrophils (%) (Auto) 88.3 Lymphocytes (%) (Auto) 6.6 Monocytes (%) (Auto) 4.9 Eosinophils (%) (Auto) 0.0 Basophils (%) (Auto) 0.2 Neutrophils # (Auto) 16.6 Lymphocytes # (Auto) 1.2 Monocytes # (Auto) 0.9 Eosinophils # (Auto) 0.0 Basophils # (Auto) 0.0 CBC Comment DIFF FINAL Differential Comment Sodium Level 144 Potassium Level 4.9 Chloride Level 109 Carbon Dioxide Level 26.1 Anion Gap 9 Blood Urea Nitrogen 31 Creatinine 1.96 Estimat Glomerular Filtration 33 Rate Random Glucose 114 Lactic Acid Level 2.5 Calcium Level 8.6 Total Bilirubin 0.7 Aspartate Amino Transf 39 (AST/SGOT) Alanine Aminotransferase 35 (ALT/SGPT) Alkaline Phosphatase 57 Total Protein 6.5 Albumin 3.2 Date/Time Procedure Status Source Growth 09/12/16 22:45 Urine Culture Received Urine Clean Catch Pending Result Diagram: 09/13/16 0510 09/13/16 0510 Assessment and Plan Assessment and Plan NEURO: Advanced Alzheimer's dementia Glaucoma Hold current meds which include Depakote (for behavior, not for seizures), Cymbalta 60 daily, trazodone 150 g daily at bedtime and resume if passes swallow eval versus place NGT for meds. Continue Timolol and travatan ocular drops. RESP: Choked on food bolus Pulmonary edema, negative pressure secondary to choking event Hemoptysis Nasal cannula wean as tolerated and continue supportive care. Hemoptysis seems mild and has been improving. Most likely secondary to aspiration event and CPR and would not pursue further workup unless it worsens. CV: Hypotension following respiratory arrest and choking, now improved History of Hypertension Lactic acidemia Had hypotension post arrest that was volume responsive. He is now normotensive. Lactic acid is downtrending Follow-up Echo Hold metoprolol 25 mg by mouth twice a day. GI: Dysphagia Speech therapy to evaluate swallow. He likely requires a modified diet. It is possible that he will not be able to tolerate enough diet to meet his nutritional needs due to advanced Alzheimer's dementia. I have discussed with his healthcare surrogate that the option exists of transitioning to hospice and comfort measures. She feels that this would be in keeping with his previously expressed goals of care if he is not able to swallow or enjoy food on his own. FEN/RENAL: Acute kidney injury Patient has been on Lasix for pedal edema which may be more of an issue of venous insufficiency with intravascular volume depletion. He is on normal saline 75 mL per hour which will continue and follow up BMP ID: UTI Leukocytosis Zosyn 2.25 g IV every 8 hours was started for urinary tract infection. He did not have a Velázquez catheter on arrival so unless he has had recurrent UTIs it is likely that this antimicrobial spectrum could be narrowed. Will follow up urine culture. HEME: Mild anemia Monitor CBC ENDO: Euglycemic Has been on prednisone 10 mg daily since 08/11/16. Will continue on Hydrocortisone 50 mg IV q12 until able to take po. PROPH: SCDs for DVT prophylaxis. Hold pharmacologic DVT prophylaxis due to hemoptysis but this could be resumed within 24 hours hemoptysis is improved. Protonix 40 mg IV daily for stress ulcer prophylaxis. ACCESS: Peripheral IV providing adequate access at this time. Change code status to DNR based on discussion with Lesvia Chris. Palliative care consult to support in terms of decisions regarding goals of care (hospice/ comfort vs PEG). Consult hospitalist to assume care 09/14/16 Level 3 Rufina Barlow MD Sep 13, 2016 06:49
[2016-09-13] MEDS: RESP: ALBUTEROL 2.5 MG/IPRATROPIUM 0.5 MG NEB (SCH) INH ×4 (07:24→23:10)
[2016-09-13] MEDS: TIMOLOL MALEATE 0.5% OPHT SOLN 5 ML BTL EACH EYE SCH ×2 (09:53→20:58)
[2016-09-13] MEDS: SODIUM CHLORIDE 0.9% FLUSH 5 ML FLUSH IV FLUSH SCH ×2 (09:55→20:58)
[2016-09-13] MEDS: PANTOPRAZOLE SODIUM 40 MG VIAL IV PUSH SCH (09:55)
[2016-09-13] MEDS: LATANOPROST 0.005% OPHT SOLN 2.5 ML BTL EACH EYE SCH (10:40)
[2016-09-13] MEDS: PIPERACIL-TAZO 2.25 GM PREMIX 50 ML IV SCH ×2 (12:29→18:00)
--- NOTE | 2016-09-13 13:33 | EKG ---
Date Performed: 09/13/2016 Time Performed: 05:33:36 PTAGE: 81 years EKG: Sinus rhythm POSSIBLE LATERAL MYOCARDIAL INFARCTION Since previous tracing, no significant change noted ABNORMAL ECG PREVIOUS TRACING : 09/12/2016 19.40 DOCTOR: Alison Lewis Interpretating Date/Time 09/13/2016 13:30:33
--- NOTE | 2016-09-13 13:33 | EKG ---
Date Performed: 09/12/2016 Time Performed: 19:40:58 PTAGE: 81 years EKG: Sinus rhythm WITH FIRST DEGREE AV BLOCK BORDERLINE LEFT AXIS DEVIATION MODERATE INTRAVENTRICULAR CONDUCTION DELAY Since previous tracing, no significant change noted ABNORMAL ECG PREVIOUS TRACING : 09/27/2013 14.10 DOCTOR: Alison Lewis Interpretating Date/Time 09/13/2016 13:30:17
[2016-09-14] VITALS (25 sets, daily range): BP systolic 130–156; BP diastolic 71–92; PULSE 76–102; RESP 18–21; TEMP 98.4–99.3; O2SAT 93–98
[2016-09-14] MEDS: PIPERACIL-TAZO 2.25 GM PREMIX 50 ML IV SCH ×4 (00:51→18:30)
[2016-09-14] MEDS: RESP: ALBUTEROL 2.5 MG/IPRATROPIUM 0.5 MG NEB (SCH) INH ×5 (02:40→19:33)
[2016-09-14] MEDS: CHLORHEXIDINE GLUCONATE 2 % 1 PACK (2 CLOTHS) TOP SCH (04:00)
[2016-09-14] MEDS: SODIUM CHLOR 0.9% 1000 ML INJ 1,000 ML IV SCH ×3 (04:58→18:31)
--- NOTE | 2016-09-14 06:14 | RADRPT ---
EXAM DATE/TIME: 09/14/2016 05:40 [facility] COMPARISON: CHEST SINGLE AP, June 13, 2015, 16:53. INDICATIONS : Short of breath. MEDICAL HISTORY : None. SURGICAL HISTORY : None. ENCOUNTER: Subsequent ACUITY: 2 days PAIN SCORE: 6/10 LOCATION: Bilateral chest FINDINGS: A single portable frontal view of the chest shows a left lower lobe infiltrate. Right lung is clear. Heart is normal in size. A degenerative thoracic spine. CONCLUSION: Left lower lobe infiltrate. Danyel Parsons Jr., MD on September 14, 2016 at 6:13 Board Certified Radiologist. This report was verified electronically.
[2016-09-14 07:54] LABS: AUTOMATED NEUTROPHIL # 7.8 TH/MM3 (1.8-7.7); BASOPHIL % 0.3 % (0.0-2.0); EOSINOPHIL # 0.6 TH/MM3 (0-0.4); HEMATOCRIT 32.6 % (39.0-51.0); HEMO FLAGS DIFF FINAL; LYMPH % 14.7 % (9.0-44.0); LYMPHOCYTE # 1.6 TH/MM3 (1.0-4.8); MEAN CELL VOLUME 83.5 FL (80.0-100.0); MEAN CORPUSCULAR HEMOGLOBIN 28.1 PG (27.0-34.0); MEAN CORPUSCULAR HGB CONC 33.7 % (32.0-36.0); MONO % 9.7 % (0.0-8.0); NEUT % 70.3 % (16.0-70.0); PLATELET COUNT 228 TH/MM3 (150-450); RED CELL DISTRIBUTION WIDTH 13.6 % (11.6-17.2); WHITE BLOOD COUNT 11.1 TH/MM3 (4.0-11.0)
[2016-09-14 08:29] LABS: BICARBONATE 26.5 MEQ/L (21.0-32.0); POTASSIUM 3.8 MEQ/L (3.5-5.1)
--- NOTE | 2016-09-14 09:16 | HHI.PR ---
Subjective Remarks Follow-up for hypertension, dysphagia, Alzheimer's dementia. His currently doing well. Resting in bed. Denies any chest pain, shortness of breath, fever or chills. Speech therapy evaluated patient for dysphagia and recommended mechanical soft diet. Palliative care consult pending Objective Vitals Vital Signs Date Time Temp Pulse Resp B/P Pulse Ox O2 Delivery O2 Flow Rate FiO2 09/14/16 06:00 83 09/14/16 05:00 94 09/14/16 04:00 84 09/14/16 04:00 98.8 85 20 145/77 93 09/14/16 03:00 80 09/14/16 02:00 85 09/14/16 01:00 81 09/14/16 00:00 99.3 84 21 130/71 93 09/14/16 00:00 87 09/13/16 20:30 96 Nasal Cannula 2.00 09/13/16 20:00 90 09/13/16 20:00 99.4 93 20 153/73 96 09/13/16 16:00 92 09/13/16 15:53 97 Nasal Cannula 2.00 09/13/16 14:00 78 15 124/56 95 Nasal Cannula 2 09/13/16 12:00 74 14 108/56 94 Nasal Cannula 2 09/13/16 10:00 75 17 101/62 95 Nasal Cannula 2 I/O 09/13/16 09/13/16 09/13/16 09/14/16 09/14/16 09/14/16 07:00 15:00 23:00 07:00 15:00 23:00 Intake Total 2524 ml Balance 2524 ml Intake Oral 120 ml IV Total 2404 ml # Voids 3 Result Diagram: 09/14/1628 09/14/16 0728 Imaging Last Impressions Head CT 09/12/162112 Signed Impressions: Service Date/Time: Monday, September 12, 2016 22:00 - CONCLUSION: No acute intracranial abnormality. Moderate ventriculomegaly again noted, stable. Chronic right-sided sinusitis. Danie Vera MD Chest CT 09/12/162112 Signed Impressions: Service Date/Time: Monday, September 12, 2016 22:09 - CONCLUSION: 1. Patchy alveolar infiltrates of both lungs, nonspecific. Aspiration, noncardiogenic pulmonary edema and pulmonary hemorrhage would be in the differential. 2. No pneumothorax or pneumomediastinum. 3. Coronary artery calcification. Danie Vera MD Chest X-Ray 09/12/16 1846 Signed Impressions: Service Date/Time: Monday, September 12, 2016 19:09 - CONCLUSION: Mild pulmonary edema. Danie Vera MD Soft Tissue Neck X-Ray 09/12/16 0000 Signed Impressions: Service Date/Time: Monday, September 12, 2016 19:11 - CONCLUSION: No foreign body or other acute soft tissue abnormality demonstrated of the neck. Danie Vera MD Neck CT 09/12/16 0000 Signed Impressions: Service Date/Time: Monday, September 12, 2016 22:00 - CONCLUSION: Neck soft tissues within normal limits. Danie Vera MD Objective Remarks GENERAL: Alert, oriented to person. No acute distress SKIN: Warm and dry. HEAD: Normocephalic. EYES: No scleral icterus. No injection or drainage. NECK: Supple, trachea midline. No JVD or lymphadenopathy. CARDIOVASCULAR: Regular rate and rhythm without murmurs, gallops, or rubs. RESPIRATORY: Breath sounds equal bilaterally. No accessory muscle use. GASTROINTESTINAL: Abdomen soft, non-tender, nondistended. MUSCULOSKELETAL: No cyanosis, or edema. BACK: Nontender without obvious deformity. No CVA tenderness. Procedures None A/P Assessment and Plan Mr. Chris is a 81 yo WM with past medical history of Alzheimer's, hypertension, hyperlipidemia who presents to [facility] after a choking episode. Apparently he was eating dinner when he began to choke and then became unresponsive and required the Heimlich maneuver as well as some component of chest compressions as there was no palpable pulse. A food bolus was dislodged and he was subsequently responsive. His SBP was initially in 60s to 80s on arrival but responded to 1 L NS bolus and he has subsequently been normotensive. Patient is DNR and was evaluated by speech who recommended mechanical soft diet. - Advanced Alzheimer's dementia - Glaucoma - Behavior disturbances - Continue Timolol and Travatan - Will continue home meds - Depakote, Cymbalta, Trazodone on discharge. - Hypotension - Acute respiratory arrest due to choking. - Resolved. Currently normotensive. - Dysphagia - speech already evaluated patient. Continue mechanical soft diet. - Acute kidney injury - Creatinine 1.96 --> 1.69. - Probable UTI - patient received zosyn. Will follow culture results. - Waiting for Palliative care consult. Patient can likely be discharged today or tomorrow 09/15/2016. DNR. SCDs. Alexandra Edmonds DO Sep 14, 2016 9:16 am
[2016-09-14] MEDS: PANTOPRAZOLE SODIUM 40 MG VIAL IV PUSH SCH (09:57)
[2016-09-14] MEDS: SODIUM CHLORIDE 0.9% FLUSH 5 ML FLUSH IV FLUSH SCH ×2 (09:58→21:00)
[2016-09-14] MEDS: LATANOPROST 0.005% OPHT SOLN 2.5 ML BTL EACH EYE SCH (09:58)
[2016-09-14] MEDS: TIMOLOL MALEATE 0.5% OPHT SOLN 5 ML BTL EACH EYE SCH ×2 (09:58→21:00)
--- NOTE | 2016-09-14 11:34 | PD.CONS ---
Consult Service Palliative Care . Consult Requested By Dr. Barlow . Primary Care Physician Hung Turk MD . Reason for Consultation a. To assist with evaluation and management of symptoms including: pain, dysphagia b. To assist medical decision maker(s) with: better understanding of current medical conditions; weighing benefits/burdens of medical treatment options; making medical treatment decisions. . (Susanne Wong) HPI History of Present Illness Mr. Chris is a 81 year old male brought to [facility] ED in [place] by EMS on 09/12/16 for evaluation status post foreign body aspiration with removal through Heimlich maneuver. The patient is a resident of [facility]. He has a history of dementia and is oriented to self only at his baseline. Facility nursing staff reported the patient was eating when he began to choke, stating he was apneic and cyanotic for a few minutes until EMS performed the Heimlich maneuver and patient subsequently spit up about a quarter sized amount of food. Patient has baseline confusion and is typically oriented to self only. However, the patient's ex- felt he was was more confused than typical after this episode. Patient's systolic blood pressure was initially in 60s to 80s on arrival but resolved with 1L normal saline bolus. He had a couple of episodes of cough with hemoptysis, reportedly 10-20 ml. Additional past medical history includes fibromyalgia, history of back pain, hypertension, hyperlipidemia, neuropathy, GERD, BPH and depression/anxiety. On arrival to the ED, the patient's respirations were unlabored and oxygen saturations were stable. Additional diagnostic findings while in the ED include: * Vital signs: Pulse 80, respirations 16, BP 115/57, oxygen saturation 94% on room air, axillary temperature 97.3 * WBC: 16.1, hemoglobin 13.5, hematocrit 40.7, platelets 57, neutrophils 53.5% * Sodium: 140, potassium 4.5, chloride 103, carbon dioxide 23.9, glucose 157, calcium 8.4 * BUN: 30, creatinine 1.97, GFR 33 * Total bilirubin: 0.5, AST 40, ALT 35, alkaline phosphatase 75 * Troponin: <0.02 * BNP: 42 * Total protein: 7.7, albumin 3.5 * Lactic acid: 3.4 * PT: 11.4, INR 1.0, APTT 26.9 * Urinalysis: Urine with WBC, WBC clumps and bacteria. * Urine culture pending. * Soft tissue neck x-ray showed no foreign body or other acute soft tissue abnormalities in the neck. * Neck CT: neck soft tissues within normal limits. * Chest x-ray: mild pulmonary edema * Chest CT: Patchy alveolar infiltrates of both lungs - aspiration, noncardiogenic pulmonary edema and pulmonary hemorrhage would be in the differential. No pneumothorax or pneumomediastinum. Urinary artery calcification. * Head CT: No acute intracranial abnormality, stable moderate ventriculomegaly, chronic right-sided sinusitis. * EKG: Sinus rhythm with first-degree A-V block borderline left axis deviation moderate intraventricular conduction delay, no significant change since previous tracing. Mr. Chris was admitted for further evaluation and medical management cardiopulmonary arrest/hypoxic episode, UTI and sepsis. Broad-spectrum antibiotics were initiated. Patient continues have intermittent hemoptysis and confusion. Speech therapy was consulted. Recommendations were made for a mechanical soft diet with nectar consistency thickened with liquids status post swallow evaluation. Chest x-ray on admission showed pulmonary edema and Chest CT showing patchy alveolar infiltrates of both lungs - aspiration, noncardiogenic pulmonary edema and pulmonary hemorrhage would be in the differential. No pneumothorax or pneumomediastinum. Urinary artery calcification. Follow up chest x-ray on significant for left lower lobe infiltrate. Palliative Care was consulted to assist with symptom management and to discuss with the patient/family the benefits and burdens of his current illnesses and the options regarding future care. . . Function/Cognitive Trajectory Per patient's ex- and healthcare surrogate (Kimberly): Mr. Chris was diagnosed with dementia a few years ago. It advanced more quickly after he had a surgical procedure in May 23, 2015. He is wheel chair bound and requires a Brian lift for transfers. He is dependent for all ADLs, He does feed himself, but the patient's feels this has become unsafe. Patient developed progressive worsening pedal edema over the last 8 months and was started on daily furosemide. The patient's ex- states that he has had dysphagia that has been progressive over the last year and has intermittently been on modified diet. He has had multiple episodes of choking "but never that bad". . (Susanne Wong) Review of Systems ROS Limitations: Altered Mental Status, Poor Historian Constitutional: COMPLAINS OF: Generalized weakness (wheelchair-bound) Ears, nose, mouth, throat: DENIES: Epistaxis Respiratory: COMPLAINS OF: Hemoptysis, Sputum production Cardiovascular: COMPLAINS OF: Lower Extremity Edema Gastrointestinal: COMPLAINS OF: Abdominal pain, Difficulty Swallowing Genitourinary: COMPLAINS OF: Urinary frequency, Urinary incontinence Musculoskeletal: COMPLAINS OF: Back pain Integumentary: COMPLAINS OF: Rash (recent history of scabies) Hematologic/Lymphatics: COMPLAINS OF: Bruising Neurologic: COMPLAINS OF: Localized weakness Psychiatric: COMPLAINS OF: Anxiety, Confusion, Depression (Susanne Wong) Past Family Social History Coded Allergies: No Known Allergies (Verified , 06/13/15) Past Medical History Alzheimer's dementia Fibromyalgia History of back pain Hypertension Hyperlipidemia Neuropathy GERD BPH Depression/anxiety . Past Surgical History Bilateral hip replacement Penile implant Lumbar discectomy . Reported Medications Finasteride 5 mill grams by mouth daily Prednisone 10 mg by mouth daily Ivermectin 3 mg by mouth daily Depakote 125 mg by mouth 3 times a day Cymbalta 60 g by mouth daily Trazodone 150 mg by mouth daily at bedtime Colchicine 0.6 mill grams by mouth daily Hydroxyzine 25 mg by mouth 3 times a day Clonazepam 0.5 mill grams by mouth twice a day Atenolol 1 drop each eye twice a day Metoprolol 25 mg by mouth twice a day Colace 100 mg by mouth twice a day MiraLAX 17 g by mouth daily Benadryl 25 mill grams by mouth every 6 hours when necessary Simvastatin 20 mill grams by mouth daily Lasix 40 mill grams by mouth daily Multivitamin 1 tab by mouth daily Aspirin 81 mill grams daily Lortab 5/325 one by mouth every 4 hours when necessary pain Melatonin 3 mill grams by mouth daily at bedtime Travatan 1 drop each eye at bedtime Permethrin . Current Medications Medications (Trade) Dose Ordered Sig/Jack Route Start Time Stop Time Status Last Admin (NS 1000 ml Inj) 1,000 ml @ 84 mls/hr [id number] IV 09/13/16 05:08 09/14/16 04:58 (NS Flush) 2 ml UNSCH PRN IV FLUSH 09/13/16 05:15 (NS Flush) 2 ml BID IV FLUSH 09/13/16 09:00 09/14/16 09:58 (Zofran Inj) 4 mg Q6H PRN IV 09/13/16 05:15 Miscellaneous Information 1 [id number] XX 09/13/16 05:15 (Chlorhexidine 2% Cloth) 3 pack Taper DAILY@04 TOP 09/14/16 04:00 09/10/17 03:59 (Chlorhexidine 2% Cloth) 3 pack UNSCH PRN TOP 09/13/16 05:15 (Protonix Inj) 40 mg Q24H IV PUSH 09/13/16 08:15 09/14/16 09:57 (Timoptic 0.5% Opth Soln) 1 drop BID EACH EYE 09/13/16 09:00 09/14/16 09:58 Latanoprost 1 drop 1 drop DAILY EACH EYE 09/13/16 10:00 09/14/16 09:58 (Zosyn 2.25 Gm Premix) 50 ml @ 100 mls/hr Q6HR IV 09/13/16 12:00 09/14/16 06:05 . Family History Patient father when the patient was only 5 years old from a massive myocardial infarction, he was likely in his 40s or 50s at that time. Family history is positive for prostate cancer and a "cancer that affected his brother' s face". . Substance Use Tobacco: Former smoker Alcohol: He used to drink alcohol heavily but quit 10-12 years ago. Prescription med abuse: None known Illicits: None known . Psychosocial History Mr. Chris was born in [place]. He has 2 sisters and 4 brothers. The patient has no children. 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 He met Lesvia (his ex-) in 2002,they were for approximately 7 years. Patient's states he was much older than her when they meet as he got older they grew apart. She moved back in with him 6 months after they because of his dementia and safety concerns. . Spiritual/Cultural Factors None . (Susanne Wong) Living Will: Completed, but not made available Health Care Surrogate: Copy in medical record Durable Power of Corsets Salesperson: Copy in medical record Date completed: 03/14/2014 . Health Care Surrogate(s): Patient' sponsor/former spouse, Kimberly Chris, is the designated health care surrogate. Tiago Antunez is designated as the alternate health care surrogate. . Documented care wishes: Living will completed per HCS who will bring a copy to [facility] on her next visit. . Today's verbally stated goals: No goals verbalized . Family/friends goals: Patient's ex- states she wants the patient to be happy. She does not want to do "things" that will have no positive impact on the patient's quality of life, but she doesn't no what those "things" are yet. . Ethical and Legal Issues NA . (Susanne Wong) Physical Exam Vital Signs Date Time Temp Pulse Resp B/P Pulse Ox O2 Delivery O2 Flow Rate FiO2 09/14/16 07:00 98.4 92 18 139/92 94 09/14/16 06:00 83 09/14/16 05:00 94 09/14/16 04:00 84 09/14/16 04:00 98.8 85 20 145/77 93 09/14/16 03:00 80 09/14/16 02:00 85 09/14/16 01:00 81 09/14/16 00:00 99.3 84 21 130/71 93 09/14/16 00:00 87 09/13/16 20:30 96 Nasal Cannula 2.00 09/13/16 20:00 90 09/13/16 20:00 99.4 93 20 153/73 96 09/13/16 16:00 92 09/13/16 15:53 97 Nasal Cannula 2.00 09/13/16 14:00 78 15 124/56 95 Nasal Cannula 2 09/13/16 12:00 74 14 108/56 94 Nasal Cannula 2 . 09/13/16 09/14/16 18:59 06:59 Intake Total 2524 ml Balance 2524 ml Intake Oral 120 ml IV Total 2404 ml # Voids 3 . Exam CONSTITUTIONAL/GENERAL: This is an adequately nourished elderly, male, patient in no apparent distress. TUBES/LINES/DRAINS: PIV x 1 SKIN: No wounds seen anteriorly. Skin temperature appropriate. Not diaphoretic. HEAD: Atraumatic. Normocephalic. EYES: Pupils equal and round and reactive. Extraocular motions intact. No scleral icterus. No injection or drainage. Fundi not examined. ENT: Hearing grossly normal. Nose without bleeding or purulent drainage. NECK: Trachea midline. Supple, nontender. No palpable thyroid enlargement or nodularity. CARDIOVASCULAR: Regular rate and rhythm. No JVD. Peripheral pulses symmetric. RESPIRATORY/CHEST: Symmetric, unlabored respirations. Clear to auscultation. Breath sounds diminished bilaterally. No wheezes, rales, or rhonchi. + Hemoptysis. GASTROINTESTINAL: Abdomen soft, nondistended. Slightly tender to palpation. No hepato-splenomegaly, or palpable masses. No guarding. Bowel sounds present. GENITOURINARY: Without palpable bladder distension. MUSCULOSKELETAL: Extremities without clubbing and cyanosis. Trace pedal edema. LYMPHATICS: No palpable cervical or supraclavicular adenopathy. NEUROLOGICAL: Awake, pleasantly confused. Oriented to self. Follows commands. Moves all extremities. PSYCHIATRIC: No obvious anxiety/depression. No apparent hallucinations or other psychotic thought process. . (Susanne Wong) Diagnostic Tests Laboratory Laboratory Tests Test 09/12/16 09/12/16 09/12/16 09/13/16 18:45 21:20 22:45 00:00 White Blood Count 16.1 TH/MM3 (4.0-11.0) Red Blood Count 4.78 MIL/MM3 (4.50-5.90) Hemoglobin 13.5 GM/DL (13.0-17.0) Hematocrit 40.7 % (39.0-51.0) Mean Corpuscular Volume 85.2 FL (80.0-100.0) Mean Corpuscular Hemoglobin 28.2 PG (27.0-34.0) Mean Corpuscular Hemoglobin 33.1 % Concent (32.0-36.0) Red Cell Distribution Width 13.4 % (11.6-17.2) Platelet Count 357 TH/MM3 (150-450) Mean Platelet Volume 8.8 FL (7.0-11.0) Neutrophils (%) (Auto) 53.5 % (16.0-70.0) Lymphocytes (%) (Auto) 32.2 % (9.0-44.0) Monocytes (%) (Auto) 7.4 % (0.0-8.0) Eosinophils (%) (Auto) 6.5 % (0.0-4.0) Basophils (%) (Auto) 0.4 % (0.0-2.0) Neutrophils # (Auto) 8.6 TH/MM3 (1.8-7.7) Lymphocytes # (Auto) 5.2 TH/MM3 (1.0-4.8) Monocytes # (Auto) 1.2 TH/MM3 (0-0.9) Eosinophils # (Auto) 1.0 TH/MM3 (0-0.4) Basophils # (Auto) 0.1 TH/MM3 (0-0.2) CBC Comment AUTO DIFF Differential Total Cells 100 Counted Neutrophils % (Manual) 52 % (16-70) Band Neutrophils % 1 % (0-6) Lymphocytes % 31 % (9-44) Monocytes % 7 % (0-8) Eosinophils % 5 % (0-4) Basophils % 1 % (0-2) Neutrophils # (Manual) 9.0 TH/MM3 (1.8-7.7) Metamyelocytes 1 % (0-1) Myelocytes 2 % (0-0) Differential Comment FINAL DIFF MANUAL Platelet Estimate HIGH (NORMAL) Platelet Morphology Comment NORMAL (NORMAL) Red Cell Morphology Comment NORMAL (NORMAL) Sodium Level 140 MEQ/L (136-145) Potassium Level 4.5 MEQ/L (3.5-5.1) Chloride Level 103 MEQ/L (98-107) Carbon Dioxide Level 23.9 MEQ/L (21.0-32.0) Anion Gap 13 MEQ/L (5-15) Blood Urea Nitrogen 30 MG/DL (7-18) Creatinine 1.97 MG/DL (0.60-1.30) Estimat Glomerular Filtration 33 ML/MIN (>89) Rate Random Glucose 157 MG/DL (74-106) Calcium Level 8.4 MG/DL (8.5-10.1) Total Bilirubin 0.5 MG/DL (0.2-1.0) Aspartate Amino Transf 40 U/L (15-37) (AST/SGOT) Alanine Aminotransferase 35 U/L (12-78) (ALT/SGPT) Alkaline Phosphatase 75 U/L (45-117) Troponin I LESS THAN 0.02 NG/ML (0.02-0.05) B-Type Natriuretic Peptide 42 PG/ML (0-100) Total Protein 7.7 GM/DL (6.4-8.2) Albumin 3.5 GM/DL (3.4-5.0) Lactic Acid Level 3.4 mmol/L (0.4-2.0) Blood Type B POSITIVE Antibody Screen NEGATIVE Blood Bank Comment Urine Color YELLOW (YELLW/STRAW) Urine Turbidity CLEAR (CLEAR) Urine pH 5.5 (5.0-8.5) Urine Specific [place] 1.013 (1.002-1.035) Urine Protein 30 mg/dL (NEG-TRACE) Urine Glucose (UA) NEG mg/dL (NEG) Urine Ketones NEG mg/dL (NEG) Urine Occult Blood NEG (NEG) Urine Nitrite NEG (NEG) Urine Bilirubin NEG (NEG) Urine Urobilinogen LESS THAN 2.0 MG/DL (LESS THAN 2.0) Urine Leukocyte Esterase MOD (NEG) Urine RBC 2 /hpf (0-3) Urine WBC 19 /hpf (0-5) Urine WBC Clumps RARE (NONE) Urine Squamous Epithelial <1 /hpf (0-5) Cells Urine Bacteria OCC /hpf (NONE) Urine Hyaline Casts 5 /lpf (RARE) Microscopic Urinalysis Comment CULTURE INDICATED Prothrombin Time 11.4 SEC (9.8-11.6) Prothromb Time International 1.0 RATIO Ratio Activated Partial 26.9 SEC Thromboplast Time (24.3-30.1) Test 09/13/16 09/14/16 05:10 07:28 White Blood Count 18.8 TH/MM3 11.1 TH/MM3 (4.0-11.0) (4.0-11.0) Red Blood Count 4.36 MIL/MM3 3.90 MIL/MM3 (4.50-5.90) (4.50-5.90) Hemoglobin 12.4 GM/DL 11.0 GM/DL (13.0-17.0) (13.0-17.0) Hematocrit 37.2 % 32.6 % (39.0-51.0) (39.0-51.0) Mean Corpuscular Volume 85.1 FL 83.5 FL (80.0-100.0) (80.0-100.0) Mean Corpuscular Hemoglobin 28.3 PG 28.1 PG (27.0-34.0) (27.0-34.0) Mean Corpuscular Hemoglobin 33.3 % 33.7 % Concent (32.0-36.0) (32.0-36.0) Red Cell Distribution Width 13.6 % 13.6 % (11.6-17.2) (11.6-17.2) Platelet Count 284 TH/MM3 228 TH/MM3 (150-450) (150-450) Mean Platelet Volume 8.7 FL 8.3 FL (7.0-11.0) (7.0-11.0) Neutrophils (%) (Auto) 88.3 % 70.3 % (16.0-70.0) (16.0-70.0) Lymphocytes (%) (Auto) 6.6 % 14.7 % (9.0-44.0) (9.0-44.0) Monocytes (%) (Auto) 4.9 % (0.0-8.0) 9.7 % (0.0-8.0) Eosinophils (%) (Auto) 0.0 % (0.0-4.0) 5.0 % (0.0-4.0) Basophils (%) (Auto) 0.2 % (0.0-2.0) 0.3 % (0.0-2.0) Neutrophils # (Auto) 16.6 TH/MM3 7.8 TH/MM3 (1.8-7.7) (1.8-7.7) Lymphocytes # (Auto) 1.2 TH/MM3 1.6 TH/MM3 (1.0-4.8) (1.0-4.8) Monocytes # (Auto) 0.9 TH/MM3 1.1 TH/MM3 (0-0.9) (0-0.9) Eosinophils # (Auto) 0.0 TH/MM3 0.6 TH/MM3 (0-0.4) (0-0.4) Basophils # (Auto) 0.0 TH/MM3 0.0 TH/MM3 (0-0.2) (0-0.2) CBC Comment DIFF FINAL DIFF FINAL Differential Comment Sodium Level 144 MEQ/L 145 MEQ/L (136-145) (136-145) Potassium Level 4.9 MEQ/L 3.8 MEQ/L (3.5-5.1) (3.5-5.1) Chloride Level 109 MEQ/L 109 MEQ/L (98-107) (98-107) Carbon Dioxide Level 26.1 MEQ/L 26.5 MEQ/L (21.0-32.0) (21.0-32.0) Anion Gap 9 MEQ/L (5-15) 10 MEQ/L (5-15) Blood Urea Nitrogen 31 MG/DL (7-18) 21 MG/DL (7-18) Creatinine 1.96 MG/DL 1.69 MG/DL (0.60-1.30) (0.60-1.30) Estimat Glomerular Filtration 33 ML/MIN (>89) 39 ML/MIN (>89) Rate Random Glucose 114 MG/DL 98 MG/DL (74-106) (74-106) Lactic Acid Level 2.5 mmol/L (0.4-2.0) Calcium Level 8.6 MG/DL 8.6 MG/DL (8.5-10.1) (8.5-10.1) Total Bilirubin 0.7 MG/DL (0.2-1.0) Aspartate Amino Transf 39 U/L (15-37) (AST/SGOT) Alanine Aminotransferase 35 U/L (12-78) (ALT/SGPT) Alkaline Phosphatase 57 U/L (45-117) Total Protein 6.5 GM/DL (6.4-8.2) Albumin 3.2 GM/DL (3.4-5.0) . (Susanne Wong) Result Diagram: 09/14/16 0728 09/14/16727 Microbiology Microbiology Date/Time Procedure Status Source Growth 09/12/16 22:45 Urine Culture - Preliminary Resulted Urine Clean Catch RESULTS PENDING . Imaging Last [address] 09/12/162112 Signed Impressions: Service Date/Time: Monday, September 12, 2016 22:00 - CONCLUSION: No acute intracranial abnormality. Moderate ventriculomegaly again noted, stable. Chronic right-sided sinusitis. Danie Vera MD Chest CT 09/12/162112 Signed Impressions: Service Date/Time: Monday, September 12, 2016 22:09 - CONCLUSION: 1. Patchy alveolar infiltrates of both lungs, nonspecific. Aspiration, noncardiogenic pulmonary edema and pulmonary hemorrhage would be in the differential. 2. No pneumothorax or pneumomediastinum. 3. Coronary artery calcification. Danie Vera MD Chest X-Ray 09/12/16 [id number] Signed Impressions: Service Date/Time: Monday, September 12, 2016 19:09 - CONCLUSION: Mild pulmonary edema. Danie Vera MD . (Susanne Wong) Patient/Family Conference Present at Family Conference: Met with patient ex-/health care surrogate (Kimberly Chris) at patient's bedside and also if family conference room. . Family Conference Time (mins): 40 Family Conference Location: Bedside, Consult Room Issues Discussed: * Palliative care role, purpose, approach * Additional medical, psychosocial, and spiritual history * Patients general health, functional status, and cognitive changes in the months leading up to the current hospitalization * Patient/family understanding of the current medical problems * Patient/family understanding of prognosis * Patients goals of care as best understood from advance directives and/or conversations and/or values * Current medical treatment options and benefits/burdens of those options * Likely scenarios comparing ongoing aggressive care with a transition to comfort measures only * Questions answered to the best of my ability * Palliative care contact information provided . (Susanne Wong) Assessment and Plan Disease Oriented Problem List: (1) Hypertension (2) BPH (benign prostatic hyperplasia) (3) Dyslipidemia (4) Encephalopathy (5) Sepsis (6) Dementia (7) Pulmonary hemorrhage (8) Cardiopulmonary arrest (9) UTI (urinary tract infection) (10) Hypoxic episode Symptom Scale: (1) Dysphagia Comment: Recommendations for pured diet with nectar consistency thickened liquids status post all evaluation. . (2) Pain Pertinent Non-Medical Issues Psychosocial: Spiritual: Legal: Ethical issues impacting care: Important Contacts Kimberly Perezester, sponsor/former spouse: [phone] . Prognosis Patient is a 81 year male patient with advanced dementia status post a choking episode. Patient has had increased difficulty swallowing with multiple episodes of choking. He is wheelchair dependent and requires assist with all ADLs. He is unable to bear weight and a Brian lift is needed for transfers. He is incontinent of bowel and bladder. Oriented to self only and at time speech is nonsensical. . Code Status: No Code Plan * NO CODE * Decision-making: Patient' sponsor/former spouse, Kimberly Chris, is the designated health care surrogate. Tiago Antunez is designated as the alternate health care surrogate. * Goals: Goals remain aggressive point of cardiopulmonary resuscitation, pending further discussions with the patient's family. Patient's ex- states she wants the patient to be happy. She does not want to do "things" that will have no positive impact on the patient's quality of life, but she doesn't no what those "things" are yet. * Patient's ex-/HCS (Kimberly Chris) states that the patient previously had a DNR, and she feels that he would not have wanted resuscitation. He has a community DNR at the facility where he is a resident. Kimberly states the patient 's quality of life has been going downhill and that when "he was in his right mind he said he never wanted to live like this". CODE STATUS changed to NO CODE 09/12/16. * Symptom managementdysphasia: Patient admitted status post foreign body aspiration with removal through Heimlich maneuver. Patient has had resolution worsening dysphagia with multiple choking episodes. Recommendations for pured diet with nectar consistency thickened liquids status post all evaluation. At this time, the patient's ex- does NOT believe she would proceed with PEG tube placement if it were indicated. Discussed the benefits and burdens PEG tube placement. At this time, the patient's ex- does NOT believe she would proceed with PEG tube placement if it were indicated. * Palliative care contact information provided to the patient's ex- and health care surrogate-Kimberly Chris. * Palliative care will continue to follow this patient throughout his hospitalization to establish trust, assist with symptom management and clarification of medical treatment goals. . . (Susanne Wong) Thank you for the opportunity to participate in the care of Mr. Chris. . (Susanne Wong) Attestation To help prompt me to consider important information that might be impacting today's encounter and assessment, information from prior notes written by myself or my colleagues may have been "brought forward" into today's note. My signature on this note, however, is an attestation that I personally performed the exam, history, and/or decision-making noted today, and, unless otherwise indicated, the interactions with patient, family, and staff as well as the review of records all occurred today. I also attest that the listed assessment and stated plan reflect my best clinical judgment today based on the combination of historical information, prior notes, and today's exam/ interactions. When time spent is documented, it refers only to time spent today by the signer, or if indicated, combined time spent today by collaborating physician/nurse practitioner. . (Susnane Wong) Collaborating MD Comments Chart reviewed. Case discussed with palliative care HISTORIC PRESERVATIONIST. Above note reviewed and I concur. . (Cuong Villegas MD) Susanne Wong Sep 14, 2016 11:26 Cuong Villegas MD Sep 24, 2016 17:36
--- NOTE | 2016-09-14 15:10 | EC ---
Study Study Date:09/14/2016 STUDY CONCLUSIONS SUMMARY - Left ventricle: The cavity size was normal. Wall thickness was increased in a pattern of mild LVH. Systolic function was normal. The estimated ejection fraction was in the range of 55% to 60%. Wall motion was normal; there were no regional wall motion abnormalities. Doppler parameters are consistent with abnormal left ventricular relaxation (grade 1 diastolic dysfunction). - Aortic valve: Transvalvular velocity was minimally increased. There was very mild stenosis. Valve area: 2.51cm^2 (Vmax). - Tricuspid valve: Mild-moderate regurgitation. - Pulmonary arteries: PA peak pressure: 33mm Hg (S). If LV function is below 40, please consider prescribing an ACEI or ARB or document rationale for non-use. PROCEDURE DATA STUDY STATUS: Elective. Procedure: Transthoracic echocardiography. Image quality was good. Scanning was performed from the parasternal, apical, and subcostal acoustic windows. Study completion: The patient tolerated the procedure well. Transthoracic echocardiography. M-mode, complete 2D, complete spectral Doppler, and color Doppler. Height: Height: 71in. Weight: Weight: 181.6lb. Body mass index: BMI: 25.4kg/m^2. Body surface area: BSA: 2.03m^2. Patient status: Inpatient. CARDIAC ANATOMY LEFT VENTRICLE: Not well visualized. The cavity size was normal. Wall thickness was increased in a pattern of mild LVH. Systolic function was normal. The estimated ejection fraction was in the range of 55% to 60%. Wall motion was normal; there were no regional wall motion abnormalities. Doppler parameters are consistent with abnormal left ventricular relaxation (grade 1 diastolic dysfunction). AORTIC VALVE: Trileaflet; mildly thickened, mildly calcified leaflets. Doppler: Transvalvular velocity was minimally increased. There was very mild stenosis. No regurgitation. Valve area: 2.51cm^2 (Vmax). Indexed valve area: 1.24cm^2/m^2 (Vmax). AORTA: Aortic root: The aortic root was normal in size. MITRAL VALVE: Structurally normal valve. Doppler: Transvalvular velocity was within the normal range. There was no evidence for stenosis. Trace to mild regurgitation. LEFT ATRIUM: The atrium was normal in size. RIGHT VENTRICLE: The cavity size was normal. Wall thickness was normal. PULMONIC VALVE: Doppler: Transvalvular velocity was within the normal range. There was no evidence for stenosis. No regurgitation. TRICUSPID VALVE: Structurally normal valve. Doppler: Transvalvular velocity was within the normal range. Mild-moderate regurgitation. PULMONARY ARTERY: The main pulmonary artery was normal-sized. Systolic pressure was within the normal range. RIGHT ATRIUM: The atrium was normal in size. PERICARDIUM: There was no pericardial effusion. SYSTEMIC VEINS: Inferior vena cava: The vessel was normal in size. Patient weight: 181.6lb _Ejection fraction:_ 65-75% _Fractional shortening:_ 32% up to 5Kg 5-11.5Kg 11.6-22.9Kg 23-45Kg 45-57Kg Aortic Root 7-13 <17 13-22 17-27 17-27 LA diam 6-13 <23 24-38 33-47 37-40 RVID 10-17 7-15 7-15 7-18 8-17 LVIDd 12-22 <32 24-38 33-47 37-40 LVPW 2-4 3-6 5-7 6-8 7-8 IVS 2-4 3-6 5-7 6-8 7-8 BASIC MEASUREMENTS ADULT NORMAL Left ventricle LV internal dimension, ED, chordal *38.1 mm 43-52 level, PLAX LV internal dimension, ES, chordal 26.8 mm 23-38 level, PLAX Fractional shortening, chordal level, 30 % >29 PLAX LV posterior wall thickness, ED 9.56 mm IVS/LVPW ratio, ED 0.99 <1.3 Ventricular septum Septal thickness, ED 9.45 mm Aortic valve Leaflet separation *14 mm 15-26 BASIC MEASUREMENTS ADULT NORMAL Aortic valve Leaflet separation *14 mm 15-26 Aorta Root diameter, ED 25 mm 20-37 Left atrium Anterior-posterior dimension, ES 33 mm 19-40 Anterior-posterior dimension index, ES 1.63 cm/m^2 <2.2 LA/aortic root ratio 1.32 DOPPLER MEASUREMENTS ADULT NORMAL Main pulmonary artery Pressure, S *33 mm Hg =30 Aortic valve Peak velocity, S 130 cm/s Valve area, Vmax 2.51 cm^2 Valve area index, Vmax 1.24 cm^2/m^2 Mitral valve Peak E-wave velocity 65.2 cm/s Peak A-wave velocity 90.3 cm/s Deceleration time 173 ms 150-230 Peak E/A ratio 0.7 Tricuspid valve Regurgitant peak velocity 273 cm/s Peak RV-RA gradient, S 30 mm Hg Maximal regurgitant velocity 273 cm/s Systemic veins Estimated CVP 10 mm Hg Right ventricle RV pressure, S *40 mm Hg <30 Pulmonic valve Peak velocity, S 133 cm/s LEGEND: Mean values are shown as u=mean value. Asterisk (*) bolden values outside specified normal range. Prepared and signed by Campos Muro [id number]
[2016-09-14] MEDS ORDERED: diphenhydrAMINE HCL 25 MG CAP PO ONE (19:15)
[2016-09-14] MEDS ORDERED: PERMETHRIN 5% CREAM 60 GM TOPICAL ONE (20:00)
[2016-09-15] VITALS (12 sets, daily range): BP systolic 124–150; BP diastolic 65–90; PULSE 77–99; RESP 16–20; TEMP 98.3–99.8; O2SAT 93–99
[2016-09-15] MEDS: PIPERACIL-TAZO 2.25 GM PREMIX 50 ML IV SCH ×3 (00:32→10:32)
[2016-09-15] MEDS: RESP: ALBUTEROL 2.5 MG/IPRATROPIUM 0.5 MG NEB (SCH) INH ×7 (01:45→23:46)
[2016-09-15] MEDS: CHLORHEXIDINE GLUCONATE 2 % 1 PACK (2 CLOTHS) TOP SCH (04:00)
[2016-09-15] MEDS: SODIUM CHLOR 0.9% 1000 ML INJ 1,000 ML IV SCH ×2 (08:47→21:25)
[2016-09-15] MEDS: PANTOPRAZOLE SODIUM 40 MG VIAL IV PUSH SCH (08:47)
[2016-09-15] MEDS: SODIUM CHLORIDE 0.9% FLUSH 5 ML FLUSH IV FLUSH SCH ×2 (09:00→21:00)
[2016-09-15] MEDS: LATANOPROST 0.005% OPHT SOLN 2.5 ML BTL EACH EYE SCH (09:09)
[2016-09-15] MEDS: TIMOLOL MALEATE 0.5% OPHT SOLN 5 ML BTL EACH EYE SCH ×2 (09:09→21:23)
--- NOTE | 2016-09-15 13:22 | HHI.PR ---
Subjective Remarks Follow-up for hypertension, dysphagia, Alzheimer's dementia. Mr. Chris is doing well. Denies any acute concerns. Ex-/caregiver at bedside and concern about dysphagia. Objective Vitals Vital Signs Date Time Temp Pulse Resp B/P Pulse Ox O2 Delivery O2 Flow Rate FiO2 09/15/16 11:00 98.3 82 16 129/78 93 09/15/16 11:00 80 09/15/16 10:00 82 09/15/16 09:00 83 09/15/16 08:53 94 Nasal Cannula 2.00 09/15/16 08:00 81 09/15/16 07:52 99.3 82 16 148/77 95 09/15/16 07:00 80 09/15/16 00:00 99.0 78 16 140/90 99 09/15/16 00:00 99 09/14/16 23:00 97 09/14/16 22:00 82 09/14/16 21:00 81 09/14/16 20:00 97 09/14/16 20:00 99.0 84 18 156/92 97 09/14/16 19:38 95 Nasal Cannula 1.50 09/14/16 18:00 102 09/14/16 17:44 96 Nasal Cannula 2.00 09/14/16 17:00 84 09/14/16 16:00 81 09/14/16 15:00 92 09/14/16 15:00 98.8 84 18 144/85 98 09/14/16 14:00 88 I/O 09/14/16 09/14/16 09/14/16 09/15/16 09/15/16 09/15/16 07:00 15:00 23:00 07:00 15:00 23:00 Intake Total 2524 ml 1473 ml Balance 2524 ml 1473 ml Intake Oral 120 ml 840 ml IV Total 2404 ml 633 ml # Voids 3 4 # Bowel Movements 0 Result Diagram: 09/14/1672709/14/16727 Imaging Last Impressions Chest X-Ray 09/14/16 06 Signed Impressions: Service Date/Time: Wednesday, September 14, 2016 05:40 - CONCLUSION: Left lower lobe infiltrate. Danyel Parsons Jr., MD Head CT 09/12/162112 Signed Impressions: Service Date/Time: Monday, September 12, 2016 22:00 - CONCLUSION: No acute intracranial abnormality. Moderate ventriculomegaly again noted, stable. Chronic right-sided sinusitis. Danie Vera MD Chest CT 09/12/162112 Signed Impressions: Service Date/Time: Monday, September 12, 2016 22:09 - CONCLUSION: 1. Patchy alveolar infiltrates of both lungs, nonspecific. Aspiration, noncardiogenic pulmonary edema and pulmonary hemorrhage would be in the differential. 2. No pneumothorax or pneumomediastinum. 3. Coronary artery calcification. Danie Vera MD Soft Tissue Neck X-Ray 09/12/16 Signed Impressions: Service Date/Time: Monday, September 12, 2016 19:11 - CONCLUSION: No foreign body or other acute soft tissue abnormality demonstrated of the neck. Danie Vera MD Neck CT 09/12/16 Signed Impressions: Service Date/Time: Monday, September 12, 2016 22:00 - CONCLUSION: Neck soft tissues within normal limits. Danie Vera MD Objective Remarks GENERAL: Alert, oriented to person. No acute distress SKIN: Warm and dry. HEAD: Normocephalic. EYES: No scleral icterus. No injection or drainage. NECK: Supple, trachea midline. No JVD or lymphadenopathy. CARDIOVASCULAR: Regular rate and rhythm without murmurs, gallops, or rubs. RESPIRATORY: Breath sounds equal bilaterally. No accessory muscle use. GASTROINTESTINAL: Abdomen soft, non-tender, nondistended. MUSCULOSKELETAL: No cyanosis, or edema. BACK: Nontender without obvious deformity. No CVA tenderness. Procedures None A/P Assessment and Plan Mr. Chris is a 81 yo WM with past medical history of Alzheimer's, hypertension, hyperlipidemia who presents to [facility] after a choking episode. Apparently he was eating dinner when he began to choke and then became unresponsive and required the Heimlich maneuver as well as some component of chest compressions as there was no palpable pulse. A food bolus was dislodged and he was subsequently responsive. His SBP was initially in 60s to 80s on arrival but responded to 1 L NS bolus and he has subsequently been normotensive. Patient is DNR and was evaluated by speech who recommended mechanical soft diet. - Advanced Alzheimer's dementia - Glaucoma - Behavior disturbances - Continue Timolol and Travatan - Will continue home meds - Depakote, Cymbalta, Trazodone on discharge. - Hypotension - Acute respiratory arrest due to choking. - Resolved. Currently normotensive. - Dysphagia - speech already evaluated patient. Continue pureed diet. - Will consult GI for possible EGD and dilation of Esophagus if indicated. - Acute kidney injury - Creatinine 1.96 --> 1.69 (on 09/14/2016) - Probable UTI - patient received zosyn. Urine cx negative. Will discontinue Zosyn. - Transfer patient to the floor without telemetry. After GI evaluation/EGD, patient can be [facility]. DNR. SCDs. Alexandra Edmonds DO Sep 15, 2016 1:22 pm
--- NOTE | 2016-09-15 13:31 | HHI.HCPN ---
Reason for visit a. To assist with evaluation and management of symptoms including: Itching, dysphagia, confusion b. To assist medical decision maker(s) with: better understanding of current medical conditions; weighing benefits/burdens of medical treatment options; making medical treatment decisions. . (Susanne Wong) Subjective/Interval History Patient seen and assessed in room 256. Also present, patient's ex-/HCS ( Kimberly hCris) and patient's nurse. Patient is awake, pleasantly confused. Oriented to self only. Denies pain, shortness of breath, fever or chills. Afebrile. WBC trending downward at 11.1 Kidney functioning slowly improving- BUN 1, creatinine 1.69, GFR 39. Urine culture was negative, antibiotics discontinued Speech therapy was consulted and evaluated patient for dysphagia likely secondary to Alzheimer's dementia. Subsequently, recommendations were made for a mechanical soft diet and nectar consistency thickened liquids. Ex-/HCS was at bedside, verbalizing concerns r/t patient's dysphagia. She is requesting an EGD to rule out any treatable cause of patient's dysphagia. Discussed with Dr. Edmonds who was agreeable and will place a GI consult. Discussed benefits and burdens of PEG tube placement again today. The patient's ex-/HCS has decided against PEG tube placement when/if indicated stating the patient would "never want that". Patient complaining of severe itchiness that is associated with a red-raised pimple-like rash on his hips, groin, left axilla and right wrist. Per patient's ex-, patient was recently treated for scabies. Treated with Permethrin and Diphenhydramine. . . Family/friend interactions Met with the patient's ex-/HCS to provide an update on the patient's clinical condition, review recent diagnostic results and clarify medical treatment goals. . (Susanne Wong) Advance Directives Living Will: Completed, but not made available Health Care Surrogate: Copy in medical record Durable Power of Design Engineer: Copy in medical record (Susanne Wong) Advance Directive Specifics Date completed: 03/14/2014 . Health Care Surrogate(s): Patient' sponsor/former spouse, Kimberly Chris, is the designated health care surrogate. Tiago Antunez is designated as the alternate health care surrogate. . Documented care wishes: Living will completed per [facility] who will bring a copy to [facility] on her next visit. . (Susanne Wong) Objective Vital Signs Date Time Temp Pulse Resp B/P Pulse Ox O2 Delivery O2 Flow Rate FiO2 09/15/16 11:00 98.3 82 16 129/78 93 09/15/16 11:00 80 09/15/16 10:00 82 09/15/16 09:00 83 09/15/16 08:53 94 Nasal Cannula 2.00 09/15/16 08:00 81 09/15/16 07:52 99.3 82 16 148/77 95 09/15/16 07:00 80 09/15/16 00:00 99.0 78 16 140/90 99 09/15/16 00:00 99 09/14/16 23:00 97 09/14/16 22:00 82 09/14/16 21:00 81 09/14/16 20:00 97 09/14/16 20:00 99.0 84 18 156/92 97 09/14/16 19:38 95 Nasal Cannula 1.50 09/14/16 18:00 102 09/14/16 17:44 96 Nasal Cannula 2.00 09/14/16 17:00 84 09/14/16 16:00 81 09/14/16 15:00 92 09/14/16 15:00 98.8 84 18 144/85 98 09/14/16 14:00 88 . Physical Exam CONSTITUTIONAL/GENERAL: This is an adequately nourished elderly, male, patient in no apparent distress. TUBES/LINES/DRAINS: PIV x 1 SKIN: No wounds seen anteriorly. Skin temperature appropriate. Not diaphoretic. HEAD: Atraumatic. Normocephalic. ENT: Hearing grossly normal. Nose without bleeding or purulent drainage. NECK: Trachea midline. CARDIOVASCULAR: Regular rate and rhythm. No JVD. Peripheral pulses symmetric. RESPIRATORY/CHEST: Symmetric, unlabored respirations. Clear to auscultation. Breath sounds diminished bilaterally. No wheezes, rales, or rhonchi. GASTROINTESTINAL: Abdomen soft, nondistended. No guarding. Bowel sounds present. GENITOURINARY: Without palpable bladder distension. MUSCULOSKELETAL: Extremities without clubbing, edema or cyanosis. NEUROLOGICAL: Awake, pleasantly confused. Oriented to self. Follows commands. Moves all extremities. PSYCHIATRIC: No obvious anxiety/depression. No apparent hallucinations or other psychotic thought process. . (Susanne Wong) Diagnostic Tests Laboratory Laboratory Tests Test 09/12/16 09/12/16 09/12/16 09/13/16 18:45 21:20 22:45 00:00 White Blood Count 16.1 TH/MM3 (4.0-11.0) Red Blood Count 4.78 MIL/MM3 (4.50-5.90) Hemoglobin 13.5 GM/DL (13.0-17.0) Hematocrit 40.7 % (39.0-51.0) Mean Corpuscular Volume 85.2 FL (80.0-100.0) Mean Corpuscular Hemoglobin 28.2 PG (27.0-34.0) Mean Corpuscular Hemoglobin 33.1 % Concent (32.0-36.0) Red Cell Distribution Width 13.4 % (11.6-17.2) Platelet Count 357 TH/MM3 (150-450) Mean Platelet Volume 8.8 FL (7.0-11.0) Neutrophils (%) (Auto) 53.5 % (16.0-70.0) Lymphocytes (%) (Auto) 32.2 % (9.0-44.0) Monocytes (%) (Auto) 7.4 % (0.0-8.0) Eosinophils (%) (Auto) 6.5 % (0.0-4.0) Basophils (%) (Auto) 0.4 % (0.0-2.0) Neutrophils # (Auto) 8.6 TH/MM3 (1.8-7.7) Lymphocytes # (Auto) 5.2 TH/MM3 (1.0-4.8) Monocytes # (Auto) 1.2 TH/MM3 (0-0.9) Eosinophils # (Auto) 1.0 TH/MM3 (0-0.4) Basophils # (Auto) 0.1 TH/MM3 (0-0.2) CBC Comment AUTO DIFF Differential Total Cells 100 Counted Neutrophils % (Manual) 52 % (16-70) Band Neutrophils % 1 % (0-6) Lymphocytes % 31 % (9-44) Monocytes % 7 % (0-8) Eosinophils % 5 % (0-4) Basophils % 1 % (0-2) Neutrophils # (Manual) 9.0 TH/MM3 (1.8-7.7) Metamyelocytes 1 % (0-1) Myelocytes 2 % (0-0) Differential Comment FINAL DIFF MANUAL Platelet Estimate HIGH (NORMAL) Platelet Morphology Comment NORMAL (NORMAL) Red Cell Morphology Comment NORMAL (NORMAL) Sodium Level 140 MEQ/L (136-145) Potassium Level 4.5 MEQ/L (3.5-5.1) Chloride Level 103 MEQ/L (98-107) Carbon Dioxide Level 23.9 MEQ/L (21.0-32.0) Anion Gap 13 MEQ/L (5-15) Blood Urea Nitrogen 30 MG/DL (7-18) Creatinine 1.97 MG/DL (0.60-1.30) Estimat Glomerular Filtration 33 ML/MIN (>89) Rate Random Glucose 157 MG/DL (74-106) Calcium Level 8.4 MG/DL (8.5-10.1) Total Bilirubin 0.5 MG/DL (0.2-1.0) Aspartate Amino Transf 40 U/L (15-37) (AST/SGOT) Alanine Aminotransferase 35 U/L (12-78) (ALT/SGPT) Alkaline Phosphatase 75 U/L (45-117) Troponin I LESS THAN 0.02 NG/ML (0.02-0.05) B-Type Natriuretic Peptide 42 PG/ML (0-100) Total Protein 7.7 GM/DL (6.4-8.2) Albumin 3.5 GM/DL (3.4-5.0) Lactic Acid Level 3.4 mmol/L (0.4-2.0) Blood Type B POSITIVE Antibody Screen NEGATIVE Blood Bank Comment Urine Color YELLOW (YELLW/STRAW) Urine Turbidity CLEAR (CLEAR) Urine pH 5.5 (5.0-8.5) Urine Specific [place] 1.013 (1.002-1.035) Urine Protein 30 mg/dL (NEG-TRACE) Urine Glucose (UA) NEG mg/dL (NEG) Urine Ketones NEG mg/dL (NEG) Urine Occult Blood NEG (NEG) Urine Nitrite NEG (NEG) Urine Bilirubin NEG (NEG) Urine Urobilinogen LESS THAN 2.0 MG/DL (LESS THAN 2.0) Urine Leukocyte Esterase MOD (NEG) Urine RBC 2 /hpf (0-3) Urine WBC 19 /hpf (0-5) Urine WBC Clumps RARE (NONE) Urine Squamous Epithelial <1 /hpf (0-5) Cells Urine Bacteria OCC /hpf (NONE) Urine Hyaline Casts 5 /lpf (RARE) Microscopic Urinalysis Comment CULTURE INDICATED Prothrombin Time 11.4 SEC (9.8-11.6) Prothromb Time International 1.0 RATIO Ratio Activated Partial 26.9 SEC Thromboplast Time (24.3-30.1) Test 09/13/16 09/14/16 05:10 07:28 White Blood Count 18.8 TH/MM3 11.1 TH/MM3 (4.0-11.0) (4.0-11.0) Red Blood Count 4.36 MIL/MM3 3.90 MIL/MM3 (4.50-5.90) (4.50-5.90) Hemoglobin 12.4 GM/DL 11.0 GM/DL (13.0-17.0) (13.0-17.0) Hematocrit 37.2 % 32.6 % (39.0-51.0) (39.0-51.0) Mean Corpuscular Volume 85.1 FL 83.5 FL (80.0-100.0) (80.0-100.0) Mean Corpuscular Hemoglobin 28.3 PG 28.1 PG (27.0-34.0) (27.0-34.0) Mean Corpuscular Hemoglobin 33.3 % 33.7 % Concent (32.0-36.0) (32.0-36.0) Red Cell Distribution Width 13.6 % 13.6 % (11.6-17.2) (11.6-17.2) Platelet Count 284 TH/MM3 228 TH/MM3 (150-450) (150-450) Mean Platelet Volume 8.7 FL 8.3 FL (7.0-11.0) (7.0-11.0) Neutrophils (%) (Auto) 88.3 % 70.3 % (16.0-70.0) (16.0-70.0) Lymphocytes (%) (Auto) 6.6 % 14.7 % (9.0-44.0) (9.0-44.0) Monocytes (%) (Auto) 4.9 % (0.0-8.0) 9.7 % (0.0-8.0) Eosinophils (%) (Auto) 0.0 % (0.0-4.0) 5.0 % (0.0-4.0) Basophils (%) (Auto) 0.2 % (0.0-2.0) 0.3 % (0.0-2.0) Neutrophils # (Auto) 16.6 TH/MM3 7.8 TH/MM3 (1.8-7.7) (1.8-7.7) Lymphocytes # (Auto) 1.2 TH/MM3 1.6 TH/MM3 (1.0-4.8) (1.0-4.8) Monocytes # (Auto) 0.9 TH/MM3 1.1 TH/MM3 (0-0.9) (0-0.9) Eosinophils # (Auto) 0.0 TH/MM3 0.6 TH/MM3 (0-0.4) (0-0.4) Basophils # (Auto) 0.0 TH/MM3 0.0 TH/MM3 (0-0.2) (0-0.2) CBC Comment DIFF FINAL DIFF FINAL Differential Comment Sodium Level 144 MEQ/L 145 MEQ/L (136-145) (136-145) Potassium Level 4.9 MEQ/L 3.8 MEQ/L (3.5-5.1) (3.5-5.1) Chloride Level 109 MEQ/L 109 MEQ/L (98-107) (98-107) Carbon Dioxide Level 26.1 MEQ/L 26.5 MEQ/L (21.0-32.0) (21.0-32.0) Anion Gap 9 MEQ/L (5-15) 10 MEQ/L (5-15) Blood Urea Nitrogen 31 MG/DL (7-18) 21 MG/DL (7-18) Creatinine 1.96 MG/DL 1.69 MG/DL (0.60-1.30) (0.60-1.30) Estimat Glomerular Filtration 33 ML/MIN (>89) 39 ML/MIN (>89) Rate Random Glucose 114 MG/DL 98 MG/DL (74-106) (74-106) Lactic Acid Level 2.5 mmol/L (0.4-2.0) Calcium Level 8.6 MG/DL 8.6 MG/DL (8.5-10.1) (8.5-10.1) Total Bilirubin 0.7 MG/DL (0.2-1.0) Aspartate Amino Transf 39 U/L (15-37) (AST/SGOT) Alanine Aminotransferase 35 U/L (12-78) (ALT/SGPT) Alkaline Phosphatase 57 U/L (45-117) Total Protein 6.5 GM/DL (6.4-8.2) Albumin 3.2 GM/DL (3.4-5.0) . (Susanne Wong) Result Diagram: 09/14/16 0728 09/14/16727 Microbiology Microbiology Date/Time Procedure Status Source Growth 09/12/16 22:45 Urine Culture - Final Complete Urine Clean Catch NO GROWTH IN 48 HOURS. . Imaging Last 72 hours Impressions Chest X-Ray 09/14/16 0600 Signed Impressions: Service Date/Time: Wednesday, September 14, 2016 05:40 - CONCLUSION: Left lower lobe infiltrate. Danyel Parsons Jr., MD Head CT 09/12/162112 Signed Impressions: Service Date/Time: Monday, September 12, 2016 22:00 - CONCLUSION: No acute intracranial abnormality. Moderate ventriculomegaly again noted, stable. Chronic right-sided sinusitis. Danie Vera MD Chest CT 09/12/162112 Signed Impressions: Service Date/Time: Monday, September 12, 2016 22:09 - CONCLUSION: 1. Patchy alveolar infiltrates of both lungs, nonspecific. Aspiration, noncardiogenic pulmonary edema and pulmonary hemorrhage would be in the differential. 2. No pneumothorax or pneumomediastinum. 3. Coronary artery calcification. Danie Vera MD Chest X-Ray 09/12/16 3179 Signed Impressions: Service Date/Time: Monday, September 12, 2016 19:09 - CONCLUSION: Mild pulmonary edema. Danie Vera MD . (Susanne Wong) Assessment and Plan Disease Oriented Problem List: (1) Hypertension (2) BPH (benign prostatic hyperplasia) (3) Dyslipidemia (4) Encephalopathy (5) Sepsis (6) Dementia (7) Pulmonary hemorrhage (8) Cardiopulmonary arrest (9) UTI (urinary tract infection) (10) Hypoxic episode Symptom Scale: (1) Dysphagia Comment: Recommendations for pured diet with nectar consistency thickened liquids status post all evaluation. GI consulted. Patient/HCS DOES NOT want PEG tube placed if/when indicated. . (2) Pain Comment: Patient reports no pain at exam. . (3) Itching Comment: Patient complaining of severe itchiness that is associated with a red- raised pimple-like rash on his hips, groin, left axilla and right wrist. Per patient's ex-, patient was recently treated for scabies. Permethrin and Diphenhydramine ordered. Will monitor, remains on contact isolation. . Pertinent Non-Medical Issues Psychosocial: Spiritual: Legal: Ethical issues impacting care: Important Contacts Kimberly Chris, sponsor/former spouse: [phone] . Prognosis Patient is a 81 year male patient with advanced dementia status post a choking episode. Patient has had increased difficulty swallowing with multiple episodes of choking. He is wheelchair dependent and requires assist with all ADLs. He is unable to bear weight and a Brian lift is needed for transfers. He is incontinent of bowel and bladder. Oriented to self only and at time speech is nonsensical. . Code Status: No Code Plan * NO CODE * Decision-making: Patient' sponsor/former spouse, Kimberly Chris, is the designated health care surrogate. Tiago Antunez is designated as the alternate health care surrogate. * Goals: Goals remain aggressive point of cardiopulmonary resuscitation, pending further discussions with the patient's family. Patient's ex- states she wants the patient to be happy. She does not want to do "things" that will have no positive impact on the patient's quality of life. She does want everything done to prevent potential future choking episodes up to the point of PEG tube placement. * Patient's ex-/HCS (Kimberly Chris) states that the patient previously had a DNR, and she feels that he would not have wanted resuscitation. He has a community DNR at the facility where he is a resident. Kimberly states the patient 's quality of life has been going downhill and that when "he was in his right mind he said he never wanted to live like this". CODE STATUS changed to NO CODE 09/12/16. * Symptom managementdysphasia: Patient admitted status post foreign body aspiration with removal through Heimlich maneuver. Patient has had resolution worsening dysphagia with multiple choking episodes. Recommendations for pured diet with nectar consistency thickened liquids status post swallow evaluation. Ex-/HCS was at bedside, verbalizing concerns r/t patient's dysphagia. She is requesting an EGD to rule out any treatable cause of patient's dysphagia. GI consult pending. Patient/HCS DOES NOT want PEG tube placed if/when indicated. * Symptom managementitching: Patient complaining of severe itchiness that is associated with a red-raised pimple-like rash on his hips, groin, left axilla and right wrist. Per patient's ex-, patient was recently treated for scabies. One-time order for Permethrin and Diphenhydramine. Will monitor, remains on contact isolation. * Palliative care will continue to follow this patient throughout his hospitalization to establish trust, assist with symptom management and clarification of medical treatment goals. . . (Susanne Wong) Attestation To help prompt me to consider important information that might be impacting today's encounter and assessment, information from prior notes written by myself or my colleagues may have been "brought forward" into today's note. My signature on this note, however, is an attestation that I personally performed the exam, history, and/or decision-making noted today, and, unless otherwise indicated, the interactions with patient, family, and staff as well as the review of records all occurred today. I also attest that the listed assessment and stated plan reflect my best clinical judgment today based on the combination of historical information, prior notes, and today's exam/ interactions. When time spent is documented, it refers only to time spent today by the signer, or if indicated, combined time spent today by collaborating physician/nurse practitioner. . (Susanne Wong) Collaborating MD Comments Chart reviewed. Case discussed with palliative care ORIENTATION AND MOBILITY INSTRUCTOR. Above WHIT note reviewed and I concur. . (Cuong Villegas MD) Susanne Wong Sep 15, 2016 13:31 Cuong Villegas MD Oct 31, 2016 13:40
--- NOTE | 2016-09-15 16:02 | PD.CONS ---
HPI History of Present Illness This is a 81 year old white male with past medical history of Alzheimer's, hypertension, hyperlipidemia who presents to [facility] after a choking episode and food impaction while eating dinner at a [employer]. Patient became unresponsive and EMS performed Heimlich maneuver as well as some component of chest compressions. Subsequently, a food bolus was dislodged and he patient became responsive. He has had a couple of episodes of cough with hemoptysis reportedly on admission but no more. Patient is bad historian and denies any GI issues for me, no visitors in the room, but was able to call [employer] segregate "Pinyk Valles" and get more information. Patient has had progressive dysphagia for the past year, he normally cough and chokes on food but able to clear symptoms, he was doing good on thickened liquid but lately was taken off and placed on regular diet. . CT shows non specific bilateral infiltrates, soft tissue neck X-ray and Neck CT negative. (Jocelyne Briones) PFSH Past Medical History Alzheimer's dementia Fibromyalgia History of back pain Hypertension Hyperlipidemia Neuropathy GERD BPH Depression/anxiety . Past Surgical History Bilateral hip replacement Penile implant Lumbar discectomy . (Jocelyne Briones) Coded Allergies: No Known Allergies (Verified , 06/13/15) Medications Current Medications Medications (Trade) Dose Ordered Sig/Jack Route Start Time Stop Time Status Last Admin (NS 1000 ml Inj) 1,000 ml @ 84 mls/hr [id number] IV 09/13/16 05:08 09/15/16 08:47 (NS Flush) 2 ml UNSCH PRN IV FLUSH 09/13/16 05:15 (NS Flush) 2 ml BID IV FLUSH 09/13/16 09:00 09/14/16 09:58 (Zofran Inj) 4 mg Q6H PRN IV 09/13/16 05:15 Miscellaneous Information 1 [id number] XX 09/13/16 05:15 (Chlorhexidine 2% Cloth) 3 pack Taper DAILY@04 TOP 09/14/16 04:00 09/10/17 03:59 (Chlorhexidine 2% Cloth) 3 pack UNSCH PRN TOP 09/13/16 05:15 (Protonix Inj) 40 mg Q24H IV PUSH 09/13/16 08:15 09/15/16 08:47 (Timoptic 0.5% Opth Soln) 1 drop BID EACH EYE 09/13/16 09:00 09/15/16 09:09 (Xalatan 0.005% Opth Soln) 1 drop DAILY EACH EYE 09/13/16 10:00 09/15/16 09:09 Family History Patient father when the patient was only 5 years old from a massive myocardial infarction, he was likely in his 40s or 50s at that time. Family history is positive for prostate cancer and a "cancer that affected his brother' s face". . Social History No alcohol No smoking (Jocelyne Briones) Review of Systems Constitutional: DENIES: Fever, Chills Eyes: DENIES: Double Vision Respiratory: COMPLAINS OF: Sputum production Cardiovascular: DENIES: Lower Extremity Edema Gastrointestinal: COMPLAINS OF: Difficulty Swallowing, DENIES: Abdominal pain , Black stools, Bloody stools, Constipation, Diarrhea, Nausea, Vomiting, Odynophagia, Swelling of Abdomen, Heartburn, Hematemesis Genitourinary: DENIES: Nocturia Musculoskeletal: DENIES: Neck pain Integumentary: DENIES: Jaundice Hematologic/lymphatic: DENIES: Bruising Immunologic/allergic: DENIES: Eczema Neurologic: DENIES: Headache Psychiatric: DENIES: Anxiety ROS ROS obtained from x- (Jocelyne Briones) GI Exam Vitals I&O Vital Signs Date Time Temp Pulse Resp B/P Pulse Ox O2 Delivery O2 Flow Rate FiO2 09/15/16 14:00 99.8 77 18 128/69 96 09/15/16 11:00 98.3 82 16 129/78 93 09/15/16 11:00 80 09/15/16 10:00 82 09/15/16 09:00 83 09/15/16 08:53 94 Nasal Cannula 2.00 09/15/16 08:00 81 09/15/16 07:52 99.3 82 16 148/77 95 09/15/16 07:00 80 09/15/16 00:00 99.0 78 16 140/90 99 09/15/16 00:00 99 09/14/16 23:00 97 09/14/16 22:00 82 09/14/16 21:00 81 09/14/16 20:00 97 09/14/16 20:00 99.0 84 18 156/92 97 09/14/16 19:38 95 Nasal Cannula 1.50 09/14/16 18:00 102 09/14/16 17:44 96 Nasal Cannula 2.00 09/14/16 17:00 84 09/14/16 16:00 81 I/O 09/14/16 09/14/16 09/14/16 09/15/16 09/15/16 09/15/16 07:00 15:00 23:00 07:00 15:00 23:00 Intake Total 2524 ml 1473 ml 0 ml 980 ml Balance 2524 ml 1473 ml 0 ml 980 ml Intake Oral 120 ml 840 ml 0 ml 480 ml IV Total 2404 ml 633 ml 500 ml # Voids 3 4 1 2 # Bowel Movements 0 0 Imaging Last Impressions Chest X-Ray 09/14/16 0600 Signed Impressions: Service Date/Time: Wednesday, September 14, 2016 05:40 - CONCLUSION: Left lower lobe infiltrate. Danyel Parsons Jr., MD Head CT 09/12/162112 Signed Impressions: Service Date/Time: Monday, September 12, 2016 22:00 - CONCLUSION: No acute intracranial abnormality. Moderate ventriculomegaly again noted, stable. Chronic right-sided sinusitis. Danie Vera MD Chest CT 09/12/162112 Signed Impressions: Service Date/Time: Monday, September 12, 2016 22:09 - CONCLUSION: 1. Patchy alveolar infiltrates of both lungs, nonspecific. Aspiration, noncardiogenic pulmonary edema and pulmonary hemorrhage would be in the differential. 2. No pneumothorax or pneumomediastinum. 3. Coronary artery calcification. Danie Vera MD Soft Tissue Neck X-Ray 09/12/16 0000 Signed Impressions: Service Date/Time: Monday, September 12, 2016 19:11 - CONCLUSION: No foreign body or other acute soft tissue abnormality demonstrated of the neck. Danie Vera MD Neck CT 09/12/16 Signed Impressions: Service Date/Time: Monday, September 12, 2016 22:00 - CONCLUSION: Neck soft tissues within normal limits. Danie Vera MD Laboratory Date/Time Procedure Status Source Growth 09/12/16 22:45 Urine Culture - Final Complete Urine Clean Catch NO GROWTH IN 48 HOURS. Physical Examination HEENT: normocephalic; atraumatic; no jaundice. NECK: Neck is supple, no JVD, no lymphadenopathy. CHEST: Chest is clear to auscultation and percussion. CARDIAC: Regular rate and rhythm with no murmur gallop or rubs. ABDOMEN: Soft, nondistended, nontender; no hepatosplenomegaly; bowel sounds are present in all four quadrants. EXTREMITIES: No clubbing, cyanosis, or edema. SKIN: Normal; no rash; no jaundice. 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 Subsequently, a food bolus was dislodged and he patient became responsive. He has had a couple of episodes of cough with hemoptysis reportedly on admission but no more. Patient is bad historian and denies any GI issues for me, no visitors in the room, but was able to call health segregate "Pinky Valles" and get more information. Patient has had progressive dysphagia for the past year, he normally cough and chokes on food but able to clear symptoms, he was doing good on thickened liquid but lately was taken off and placed on regular diet. . CT shows non specific bilateral infiltrates, soft tissue neck X-ray and Neck CT negative. ST recommended mechanical soft diet with nectar thickened - Leukocytosis- improving, Urine cx negative so far, low grade fever per attending - Anemia- no bleeding reported, could be dilusional - Acute respiratory arrest due to choking- Resolved - Alzheimer's, hypertension, hyperlipidemia per attending Plan: - Diet per st recommendation - Continue ST - EGD/dill in am - obtain consents, spoke to Pinky Baum and is agreeing, alternative, risk and benefits explained - NPO mn - Supportive care - Patient seen and examined by Dr. Molina and myself and this note is written on his behalf. (Jocelyne Briones) Physician Comments Patient was seen and examined, agree with above note. we will check labs, continue supportive care. EGD with dil in am. (Treva Molina MD) Jocelyne Briones Sep 15, 2016 16:02 Treva Molina MD Sep 15, 2016 22:07
[2016-09-16] VITALS (10 sets, daily range): BP systolic 137–170; BP diastolic 76–87; PULSE 70–85; RESP 18–20; TEMP 97.2–99.4; O2SAT 92–96
[2016-09-16] MEDS: CHLORHEXIDINE GLUCONATE 2 % 1 PACK (2 CLOTHS) TOP SCH (04:00)
[2016-09-16] MEDS: RESP: ALBUTEROL 2.5 MG/IPRATROPIUM 0.5 MG NEB (SCH) INH ×5 (04:09→21:02)
[2016-09-16] MEDS: TIMOLOL MALEATE 0.5% OPHT SOLN 5 ML BTL EACH EYE SCH ×2 (09:00→20:43)
--- NOTE | 2016-09-16 09:20 | HHI.PR ---
Subjective Remarks Follow-up for hypertension, dysphagia, Alzheimer's dementia. Mr. Chris denies any acute concerns. Caregiver at bedside. No fever, chills. EGD today. Objective Vitals Vital Signs Date Time Temp Pulse Resp B/P Pulse Ox O2 Delivery O2 Flow Rate FiO2 09/16/16 08:00 97.6 70 20 170/76 96 09/16/16 04:11 96 Nasal Cannula 2.00 09/16/16 04:00 97.7 74 18 154/84 95 09/16/16 00:00 99.4 77 18 137/76 94 09/15/16 20:48 98 Nasal Cannula 2.00 09/15/16 20:00 99.5 88 20 150/80 96 09/15/16 16:00 99.8 78 20 124/65 95 09/15/16 14:00 99.8 77 18 128/69 96 09/15/16 11:00 98.3 82 16 129/78 93 09/15/16 11:00 80 09/15/16 10:00 82 I/O 09/15/16 09/15/16 09/15/16 09/16/16 09/16/16 09/16/16 07:00 15:00 23:00 07:00 15:00 23:00 Intake Total 0 ml 1340 ml Balance 0 ml 1340 ml Intake Oral 0 ml 840 ml IV Total 500 ml # Voids 1 3 2 # Bowel Movements 0 Result Diagram: 09/14/16 0728 09/14/16 0728 Objective Remarks GENERAL: Alert, oriented to person. No acute distress SKIN: Warm and dry. HEAD: Normocephalic. EYES: No scleral icterus. No injection or drainage. NECK: Supple, trachea midline. No JVD or lymphadenopathy. CARDIOVASCULAR: Regular rate and rhythm without murmurs, gallops, or rubs. RESPIRATORY: Breath sounds equal bilaterally. No accessory muscle use. GASTROINTESTINAL: Abdomen soft, non-tender, nondistended. MUSCULOSKELETAL: No cyanosis, or edema. BACK: Nontender without obvious deformity. No CVA tenderness. Procedures None A/P Assessment and Plan Mr. Chris is a 81 yo WM with past medical history of Alzheimer's, hypertension, hyperlipidemia who presents to [facility] after a choking episode. Apparently he was eating dinner when he began to choke and then became unresponsive and required the Heimlich maneuver as well as some component of chest compressions as there was no palpable pulse. A food bolus was dislodged and he was subsequently responsive. His SBP was initially in 60s to 80s on arrival but responded to 1 L NS bolus and he has subsequently been normotensive. Patient is DNR and was evaluated by speech who recommended mechanical soft diet. - Advanced Alzheimer's dementia - Glaucoma - Behavior disturbances - Continue Timolol and Travatan - continue home meds - Depakote, Cymbalta, Trazodone on discharge. - Hypotension - Acute respiratory arrest due to choking. - Resolved. Currently normotensive. - Dysphagia - speech already evaluated patient. Continue pureed diet. - Patient underwent EGD with dilation size 17mm - Acute kidney injury - Creatinine 1.96 --> 1.69 (on 09/14/2016) - Probable UTI - patient received zosyn. Urine cx negative. Zosyn discontinued. - Possible discharge on 09/17/2016. DNR. SCDs. Alexandra Edmonds DO Sep 16, 2016 9:20 am
[2016-09-16] MEDS ORDERED: PROPOFOL 200 MG/20 ML AMP IV ONE (10:19)
--- NOTE | 2016-09-16 10:33 | HHI.GIFU ---
Subjective Remarks feels ok, seems to be comfortable Objective Vitals I&O Vital Signs Date Time Temp Pulse Resp B/P Pulse Ox O2 Delivery O2 Flow Rate FiO2 09/16/16 09:58 97.6 70 20 170/76 96 09/16/16 08:00 97.6 70 20 170/76 96 09/16/16 04:11 96 Nasal Cannula 2.00 09/16/16 04:00 97.7 74 18 154/84 95 09/16/16 00:00 99.4 77 18 137/76 94 09/15/16 20:48 98 Nasal Cannula 2.00 09/15/16 20:00 99.5 88 20 150/80 96 09/15/16 16:00 99.8 78 20 124/65 95 09/15/16 14:00 99.8 77 18 128/69 96 09/15/16 11:00 98.3 82 16 129/78 93 09/15/16 11:00 80 I/O 09/15/16 09/15/16 09/15/16 09/16/16 09/16/16 09/16/16 07:00 15:00 23:00 07:00 15:00 23:00 Intake Total 0 ml 1340 ml Balance 0 ml 1340 ml Intake Oral 0 ml 840 ml IV Total 500 ml # Voids 1 3 2 # Bowel Movements 0 Laboratory Date/Time Procedure Status Source Growth 09/12/16 22:45 Urine Culture - Final Complete Urine Clean Catch NO GROWTH IN 48 HOURS. Physical Exam HEENT: Pupils round and reactive to light; normocephalic; atraumatic; no jaundice. Throat is clear. NECK: Neck is supple, no JVD, no lymphadenopathy. CHEST: Chest is clear to auscultation and percussion. CARDIAC: Regular rate and rhythm with no murmur gallop or rubs. ABDOMEN: Soft, nondistended, nontender; no hepatosplenomegaly; bowel sounds are present in all four quadrants. EXTREMITIES: No clubbing, cyanosis, or edema. SKIN: Normal; no rash; no jaundice. 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 Assessment and Plan Plan - Dysphagia- recent choking episode that resulted in food impaction and becoming unresponsive s/p Heimlich maneuver as well as some component of chest compressions by EMS. Subsequently, a food bolus was dislodged and he patient became responsive. He has had a couple of episodes of cough with hemoptysis reportedly on admission but no more. Patient is bad historian and denies any GI issues for me, no visitors in the room, but was able to call health segregate "Pinky Valles" and get more information. Patient has had progressive dysphagia for the past year, he normally cough and chokes on food but able to clear symptoms, he was doing good on thickened liquid but lately was taken off and placed on regular diet. . CT shows non specific bilateral infiltrates, soft tissue neck X-ray and Neck CT negative. ST recommended mechanical soft diet with nectar thickened - Leukocytosis- improving, Urine cx negative so far, low grade fever per attending - Anemia- no bleeding reported, could be dilusional - Acute respiratory arrest due to choking- Resolved - Alzheimer's, hypertension, hyperlipidemia per attending 1-4-16 doing ok had EGD with dilation today. Plan: - Diet soft - Continue ST - - Supportive care - we will F/U as needed Treva Molina MD Sep 16, 2016 10:33
--- NOTE | 2016-09-16 12:20 | HHI.HCPN ---
Reason for visit a. To assist with evaluation and management of symptoms including: Itching, dysphagia, confusion b. To assist medical decision maker(s) with: better understanding of current medical conditions; weighing benefits/burdens of medical treatment options; making medical treatment decisions. . (Susanne Wong) Subjective/Interval History Patient seen and assessed in room 725. Also present, patient's ex-/HCS ( Kimberly Chris). Speech therapy was consulted and evaluated patient for dysphagia likely secondary to Alzheimer's dementia. Subsequently, recommendations were made for a mechanical soft diet and nectar consistency thickened liquids. GI was consulted yesterday to evaluate for possible EGD with dilatation, per patient's ex-/HCS request to identify any treatable conditions that could be contributing to the patient's worsening dysphasia. Patient tolerated procedure well this am. Urine culture was negative, antibiotics discontinued. Acute kidney injury resolving. Creatinine on admission 1.97, decreased to 1.69 on 09/14/16. Afebrile. WBC trending downward at 11.1 on 09/24/16. Patient complaining of severe itchiness that is associated with a red-raised pimple-like rash on his hips, groin, left axilla and right wrist. Per patient's ex-, patient was recently treated for scabies. Treated with Permethrin and Diphenhydramine. . . Family/friend interactions Spoke to patient and his ex- at patient's bedside. Hospice consulted for information gathering. Kimberly ( Ex-/HCS) is not certain if she wants to transition to comfort focused goals. She states she only wants Roderick to be comfortable and happy, but she also wants to continue doing everything possible to keep him alive as long as possible. . (Susanne Wong) Advance Directives Living Will: Completed, but not made available Health Care Surrogate: Copy in medical record Durable Power of Yarn Spooler: Copy in medical record (Susanne Wong) Advance Directive Specifics Date completed: 03/14/2014 . Health Care Surrogate(s): Patient' sponsor/former spouse, Kimberly Chris, is the designated health care surrogate. Tiago Antunez is designated as the alternate health care surrogate. . Documented care wishes: Living will completed per HCS who will bring a copy to [facility] on her next visit. . (Susanne Wong) Objective Vital Signs Date Time Temp Pulse Resp B/P Pulse Ox O2 Delivery O2 Flow Rate FiO2 09/16/16 09:58 97.6 70 20 170/76 96 09/16/16 08:30 96 Nasal Cannula 2.00 09/16/16 08:00 97.6 70 20 170/76 96 09/16/16 04:11 96 Nasal Cannula 2.00 09/16/16 04:00 97.7 74 18 154/84 95 09/16/16 00:00 99.4 77 18 137/76 94 09/15/16 20:48 98 Nasal Cannula 2.00 09/15/16 20:00 99.5 88 20 150/80 96 09/15/16 16:00 99.8 78 20 124/65 95 09/15/16 14:00 99.8 77 18 128/69 96 Physical Exam CONSTITUTIONAL/GENERAL: This is an adequately nourished elderly, male patient in no apparent distress. TUBES/LINES/DRAINS: PIV x 1 SKIN: No wounds seen anteriorly. Skin temperature appropriate. Not diaphoretic. Itchy red raised pimple-like rash noted on hips, groin, axilla and wrists-possible scabies, treated with permethrin. HEAD: Atraumatic. Normocephalic. ENT: Hearing grossly normal. Nose without bleeding or purulent drainage. NECK: Trachea midline. CARDIOVASCULAR: Regular rate and rhythm. No JVD. Peripheral pulses symmetric. RESPIRATORY/CHEST: Symmetric, unlabored respirations. Clear to auscultation. Breath sounds diminished bilaterally. No wheezes, rales, or rhonchi. Small amount of blood-tinged sputum. GASTROINTESTINAL: Abdomen soft, nondistended. No guarding. Bowel sounds present. GENITOURINARY: Without palpable bladder distension. MUSCULOSKELETAL: Extremities without clubbing, edema or cyanosis. NEUROLOGICAL: Lethargic status post EGD with dilatation this morning. Oriented to self. Follows commands. Moves all extremities. PSYCHIATRIC: No obvious anxiety/depression. No apparent hallucinations or other psychotic thought process. . (Susanne Wong) Diagnostic Tests Laboratory Laboratory Tests Test 09/14/16 07:28 White Blood Count 11.1 TH/MM3 (4.0-11.0) Red Blood Count 3.90 MIL/MM3 (4.50-5.90) Hemoglobin 11.0 GM/DL (13.0-17.0) Hematocrit 32.6 % (39.0-51.0) Mean Corpuscular Volume 83.5 FL (80.0-100.0) Mean Corpuscular Hemoglobin 28.1 PG (27.0-34.0) Mean Corpuscular Hemoglobin 33.7 % Concent (32.0-36.0) Red Cell Distribution Width 13.6 % (11.6-17.2) Platelet Count 228 TH/MM3 (150-450) Mean Platelet Volume 8.3 FL (7.0-11.0) Neutrophils (%) (Auto) 70.3 % (16.0-70.0) Lymphocytes (%) (Auto) 14.7 % (9.0-44.0) Monocytes (%) (Auto) 9.7 % (0.0-8.0) Eosinophils (%) (Auto) 5.0 % (0.0-4.0) Basophils (%) (Auto) 0.3 % (0.0-2.0) Neutrophils # (Auto) 7.8 TH/MM3 (1.8-7.7) Lymphocytes # (Auto) 1.6 TH/MM3 (1.0-4.8) Monocytes # (Auto) 1.1 TH/MM3 (0-0.9) Eosinophils # (Auto) 0.6 TH/MM3 (0-0.4) Basophils # (Auto) 0.0 TH/MM3 (0-0.2) CBC Comment DIFF FINAL Differential Comment Sodium Level 145 MEQ/L (136-145) Potassium Level 3.8 MEQ/L (3.5-5.1) Chloride Level 109 MEQ/L (98-107) Carbon Dioxide Level 26.5 MEQ/L (21.0-32.0) Anion Gap 10 MEQ/L (5-15) Blood Urea Nitrogen 21 MG/DL (7-18) Creatinine 1.69 MG/DL (0.60-1.30) Estimat Glomerular Filtration 39 ML/MIN (>89) Rate Random Glucose 98 MG/DL (74-106) Calcium Level 8.6 MG/DL (8.5-10.1) . (Susanne Wong) Result Diagram: 09/14/16 0728 09/14/16 0728 Microbiology Last 72 hours Impressions Chest X-Ray 09/14/16 0600 Signed Impressions: Service Date/Time: Wednesday, September 14, 2016 05:40 - CONCLUSION: Left lower lobe infiltrate. Danyel Parsons Jr., MD . Imaging Last 72 hours Impressions Chest X-Ray 09/14/16 0600 Signed Impressions: Service Date/Time: Wednesday, September 14, 2016 05:40 - CONCLUSION: Left lower lobe infiltrate. Danyel Parsons Jr., MD . Procedures 09/16/16: EGD with dilatation . (Susanne Wong) Assessment and Plan Disease Oriented Problem List: (1) Hypertension (2) BPH (benign prostatic hyperplasia) (3) Dyslipidemia (4) Encephalopathy (5) Sepsis (6) Dementia (7) Pulmonary hemorrhage (8) Cardiopulmonary arrest (9) UTI (urinary tract infection) (10) Hypoxic episode Symptom Scale: (1) Dysphagia Comment: Recommendations for pured diet with nectar consistency thickened liquids status post all evaluation. Patient/HCS DOES NOT want PEG tube placed if/when indicated. Patient's ex-/HCS verbalized understanding that patient' s dysphasia is likely related to his dementia. However, she requested a GI consult for possible EGD to identify any treatable conditions that may be contributing to the patient's progressively worsening dysphagia. Status post EGD with dilatation this morning 09/16/16, patient tolerated procedure without difficulties. . (2) Pain Comment: Patient reports no pain at exam. . (3) Itching Comment: Patient complaining of severe itchiness that is associated with a red- raised pimple-like rash on his hips, groin, left axilla and right wrist. Per patient's ex-, patient was recently treated for scabies. Permethrin and Diphenhydramine ordered. Will monitor, remains on contact isolation. . Pertinent Non-Medical Issues Psychosocial:Mr. Chris was born in [place]. He has 2 sisters and 4 brothers. The patient has no children. 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 He met Lesvia (his ex-) in 2002,they were for approximately 7 years. Patient's states he was much older than her when they meet as he got older they grew apart. She moved back in with him 6 months after they because of his dementia and safety concerns. Spiritual: None. Legal: Patient's ex-, Lesvia Chris, is the designated health care surrogate. Ethical issues impacting care: No known ethical issues impacting care at this time. . Important Contacts Kimberly Chris, sponsor/former spouse: [phone] . Prognosis Patient is a 81 year male patient with advanced dementia status post a choking episode. Patient has had increased difficulty swallowing with multiple episodes of choking. He is wheelchair dependent and requires assist with all ADLs. He is unable to bear weight and a Brian lift is needed for transfers. He is incontinent of bowel and bladder. Oriented to self only and at time speech is nonsensical. . Code Status: No Code Plan * NO CODE * Decision-making: Patient' sponsor/former spouse, Kimberly Chris, is the designated health care surrogate. Tiago Antunez is designated as the alternate health care surrogate. * Goals: Return to facility and remain on pureed diet to prevent further episodes of aspiration. * Patient's ex-/HCS (Kimberly Chris) states that the patient previously had a DNR, and she feels that he would not have wanted resuscitation. He has a community DNR at the facility where he is a resident. Kimberly states the patient 's quality of life has been going downhill and that when "he was in his right mind he said he never wanted to live like this". CODE STATUS changed to NO CODE 09/12/16. * Hospice consulted. Case management and for nurse notified. Phone call placed to hospice admission/intake, spoke to Matthew. Report given to hospice admission nurse, Paz. * Spoke to patient's ex-/HCS at length about the differences between aggressive treatment goals and comfort focused goals. Kimberly verbalizes understanding that the patient's dementia will progressively worsen, and he will likely experience complications related to his dementia. She states she only wants Roderick to be comfortable and happy, but she also wants to continue doing everything possible to keep him alive as long as possible. Kimberly ( Ex- /HCS) is not certain if she wants to transition to comfort focused goals at this time, but she would like to meet with [facility] to discuss further. * Symptom managementdysphasia: Status post EGD with dilatation this morning 09/16, patient tolerated procedure without difficulties. Recommendations for pur ed diet with nectar consistency thickened liquids status post swallow evaluation. Patient/HCS DOES NOT want PEG tube placed if/when indicated. Patient's ex-/HCS verbalized understanding that patient's dysphasia is likely related to his dementia. However, she requested a GI consult for possible EGD to identify any treatable conditions that may be contributing to the patient's progressively worsening dysphagia. * Symptom managementitching: Patient complaining of severe itchiness that is associated with a red-raised pimple-like rash on his hips, groin, left axilla and right wrist. Per patient's ex-, patient was recently treated for scabies. One-time order for Permethrin and Diphenhydramine. Will monitor, remains on contact isolation. * Symptom managementpain: Possible causes of pain include trauma status post Heimlich maneuver, infection, suspected UTI, scabies, immobility, bedbound status etc. Patient denied pain at time of exam, showing no nonverbal sites of pain such as grimacing, moaning or furrowed brow. Palliative care will continue to monitor for pain and make recommendations as indicated. * Palliative care will continue to follow this patient throughout his hospitalization to establish trust, assist with symptom management and clarification of medical treatment goals. . . (Susanne Wong) Attestation To help prompt me to consider important information that might be impacting today's encounter and assessment, information from prior notes written by myself or my colleagues may have been "brought forward" into today's note. My signature on this note, however, is an attestation that I personally performed the exam, history, and/or decision-making noted today, and, unless otherwise indicated, the interactions with patient, family, and staff as well as the review of records all occurred today. I also attest that the listed assessment and stated plan reflect my best clinical judgment today based on the combination of historical information, prior notes, and today's exam/ interactions. When time spent is documented, it refers only to time spent today by the signer, or if indicated, combined time spent today by collaborating physician/nurse practitioner. . (Susanne Wong) Collaborating MD Comments Chart reviewed, case discussed with palliative care DYE EXPERT. Above DYE EXPERT note reviewed and I concur. . . (Cuong Villegas MD) Susanne Wong Sep 16, 2016 12:20 Cuong Villegas MD Oct 31, 2016 13:03
[2016-09-16] MEDS: SODIUM CHLORIDE 0.9% FLUSH 5 ML FLUSH IV FLUSH SCH ×2 (12:27→20:44)
[2016-09-16] MEDS: PANTOPRAZOLE SODIUM 40 MG VIAL IV PUSH SCH (12:27)
[2016-09-16] MEDS: LATANOPROST 0.005% OPHT SOLN 2.5 ML BTL EACH EYE SCH (12:28)
[2016-09-16] MEDS: hydrOXYzine HCL 10 MG TAB PO PRN (17:27)
[2016-09-16] MEDS: SODIUM CHLOR 0.9% 1000 ML INJ 1,000 ML IV SCH (20:42)
[2016-09-16] MEDS ORDERED: LACTULOSE SYRUP 20 GM/30 ML CUP PO PRN (23:00)
[2016-09-17] VITALS (8 sets, daily range): BP systolic 142–159; BP diastolic 72–96; PULSE 75–86; RESP 16–18; TEMP 96.5–99.4; O2SAT 93–94
[2016-09-17] MEDS: RESP: ALBUTEROL 2.5 MG/IPRATROPIUM 0.5 MG NEB (SCH) INH ×2 (00:16→05:00)
[2016-09-17] MEDS: CHLORHEXIDINE GLUCONATE 2 % 1 PACK (2 CLOTHS) TOP SCH (04:00)
[2016-09-17] MEDS: SODIUM CHLOR 0.9% 1000 ML INJ 1,000 ML IV SCH ×2 (06:26→16:23)
[2016-09-17] MEDS: PANTOPRAZOLE SODIUM 40 MG VIAL IV PUSH SCH (08:08)
[2016-09-17] MEDS: TIMOLOL MALEATE 0.5% OPHT SOLN 5 ML BTL EACH EYE SCH ×2 (08:18→23:07)
[2016-09-17] MEDS: LATANOPROST 0.005% OPHT SOLN 2.5 ML BTL EACH EYE SCH (08:18)
[2016-09-17] MEDS: SODIUM CHLORIDE 0.9% FLUSH 5 ML FLUSH IV FLUSH SCH ×2 (08:18→23:06)
[2016-09-17] MEDS: hydrOXYzine HCL 10 MG TAB PO PRN ×2 (11:09→23:06)
--- NOTE | 2016-09-17 17:23 | RADRPT ---
EXAM DATE/TIME: 09/17/2016 00:00 [facility] COMPARISON: No previous studies available for comparison. INDICATIONS : Dysphagia. FLUORO TIME: 1.2 minutes IMAGE COUNT: 0 CONTRAST: Dose as prescribed by speech pathologist. MEDICAL HISTORY : None. SURGICAL HISTORY : None. ENCOUNTER: Initial ACUITY: 4 - 6 days PAIN SCORE: Non-responsive. LOCATION: Bilateral neck FINDINGS: A modified barium swallow was performed with speech pathology. Patient was given a variety of liquids to swallow. For a full detailed report, see report by the speech pathologist. CONCLUSION: 1. See speech pathology report for full evaluation. Bogdan Bai MD on September 17, 2016 at 17:19 Board Certified Radiologist. This report was verified electronically.
--- NOTE | 2016-09-17 17:31 | HHI.HCPN ---
Reason for visit a. To assist with evaluation and management of symptoms including: Itching, dysphagia, confusion b. To assist medical decision maker(s) with: better understanding of current medical conditions; weighing benefits/burdens of medical treatment options; making medical treatment decisions. . (Susanne Wong) Subjective/Interval History Patient seen and assessed in room 725. Also present, patient's ex-/HCS ( Kimberly Chris). Patient remains confused, requiring frequent redirection. Oriented to self only. Pleasant. Speech therapy was consulted and evaluated patient for dysphagia likely secondary to Alzheimer's dementia. Subsequently, recommendations were made for a mechanical soft diet and nectar consistency thickened liquids. Status post EGD with dilatation on 09/16/16. Per family, patient was having increased dysphagia with PO intake today. Patient was referred for a modified barium swallow by Dr. Edmonds with subsequent recommendations to continue pured diet with thin liquids. Speech therapy will continue to follow this patient to ensure the patient is taking small bites/sips during meals and sitting upright. Patient/family met with hospice today. Kimberly (ex-) maintenance uncertain if it is "time"to transition to more comfort focused goals. . Family/friend interactions Spoke to patient's ex-/HCS at patient's bedside. She met with hospice earlier today, verbalizing uncertainty on what is best for the patient. We again discussed aggressive goals versus comfort focus goals. She is asked palliative care to meet with her again tomorrow, when she has a friend present, to discuss further. . (Susanne Wong) Advance Directives Living Will: Completed, but not made available Health Care Surrogate: Copy in medical record Durable Power of Languages And Literature Instructor: Copy in medical record (Susanne Wong) Advance Directive Specifics Date completed: 03/14/2014 . Health Care Surrogate(s): Patient' sponsor/former spouse, Kimberly Chris, is the designated health care surrogate. Tiago Antunez is designated as the alternate health care surrogate. . Documented care wishes: Living will completed per HCS who will bring a copy to [facility] on her next visit. . (Susanne Wong) Objective Vital Signs Date Time Temp Pulse Resp B/P Pulse Ox O2 Delivery O2 Flow Rate FiO2 09/17/16 16:48 98.8 78 16 148/76 94 09/17/16 12:00 96.5 75 16 159/86 94 09/17/16 08:08 94 21 09/17/16 08:00 98.0 84 16 142/96 93 09/17/16 04:00 97.1 84 18 150/76 94 09/17/16 00:00 97.7 83 18 156/72 93 09/16/16 21:03 92 09/16/16 20:00 98.6 85 18 158/78 93 Intake & Output 09/17/16 09/17/16 07:00 19:00 Intake Total 1442 ml 687 ml Balance 1442 ml 687 ml Intake Oral 100 ml IV Total 1342 ml 687 ml # Voids 3 # Bowel Movements 2 . Physical Exam CONSTITUTIONAL/GENERAL: This is an adequately nourished elderly, male patient in no apparent distress. TUBES/LINES/DRAINS: PIV x 1 SKIN: No wounds seen anteriorly. Skin temperature appropriate. Not diaphoretic. HEAD: Atraumatic. Normocephalic. ENT: Hearing grossly normal. Nose without bleeding or purulent drainage. NECK: Trachea midline. CARDIOVASCULAR: Regular rate and rhythm. No JVD. Peripheral pulses symmetric. RESPIRATORY/CHEST: Symmetric, unlabored respirations. Clear to auscultation. Breath sounds diminished bilaterally. No wheezes, rales, or rhonchi. GASTROINTESTINAL: Abdomen soft, nondistended. No guarding. Bowel sounds present. GENITOURINARY: Without palpable bladder distension. MUSCULOSKELETAL: Extremities without clubbing or cyanosis. Trace pedal edema NEUROLOGICAL: \\Oriented to self. Follows commands. Moves all extremities. PSYCHIATRIC: No obvious anxiety/depression. No apparent hallucinations or other psychotic thought process. . (Susanne Wong) Diagnostic Tests Result Diagram: 09/14/16 0728 09/14/16 0728 Procedures 09/16/16: EGD with dilatation . (Susanne Wong) Assessment and Plan Disease Oriented Problem List: (1) Hypertension (2) BPH (benign prostatic hyperplasia) (3) Dyslipidemia (4) Encephalopathy (5) Sepsis (6) Dementia (7) Pulmonary hemorrhage (8) Cardiopulmonary arrest (9) UTI (urinary tract infection) (10) Hypoxic episode Symptom Scale: (1) Dysphagia Comment: Recommendations for pured diet with nectar consistency thickened liquids status post all evaluation. Patient/HCS DOES NOT want PEG tube placed if/when indicated. Patient's ex-/HCS verbalized understanding that patient' s dysphasia is likely related to his dementia. Status post EGD with dilatation on 09/16/16. . (2) Pain Comment: Patient reports no pain at exam. . (3) Itching Comment: Patient complaining of severe itchiness that is associated with a red- raised pimple-like rash on his hips, groin, left axilla and right wrist. Per patient's ex-, patient was recently treated for scabies. Permethrin and Diphenhydramine ordered. Will monitor, remains on contact isolation. . Pertinent Non-Medical Issues Psychosocial:Mr. Chris was born in [place]. He has 2 sisters and 4 brothers. The patient has no children. 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 He met Lesvia (his ex-) in 2002,they were for approximately 7 years. Patient's states he was much older than her when they meet as he got older they grew apart. She moved back in with him 6 months after they because of his dementia and safety concerns. Spiritual: None. Legal: Patient's ex-, Lesvia Chris, is the designated health care surrogate. Ethical issues impacting care: No known ethical issues impacting care at this time. . Important Contacts Kimberly Chris, sponsor/former spouse: [phone] . Prognosis Patient is a 81 year male patient with advanced dementia status post a choking episode. Patient has had increased difficulty swallowing with multiple episodes of choking. He is wheelchair dependent and requires assist with all ADLs. He is unable to bear weight and a Brian lift is needed for transfers. He is incontinent of bowel and bladder. Oriented to self only and at time speech is nonsensical. . Code Status: No Code Plan * NO CODE * Decision-making: Patient' sponsor/former spouse, Kimberly Chris, is the designated health care surrogate. Tiago Antunez is designated as the alternate health care surrogate. * Goals: Return to facility and remain on pureed diet to prevent further episodes of aspiration. * Patient's ex-/HCS (Kimberly Chris) states that the patient previously had a DNR, and she feels that he would not have wanted resuscitation. He has a community DNR at the facility where he is a resident. Kimberly states the patient 's quality of life has been going downhill and that when "he was in his right mind he said he never wanted to live like this". CODE STATUS changed to NO CODE 09/12/16. * Hospice consulted. Met with hospice earlier today, verbalizing uncertainty on what is best for the patient. We again discussed aggressive goals versus comfort focus goals. She is asked palliative care to meet with her again tomorrow, when she has a friend present, to discuss further. * Symptom managementdysphasia: Status post EGD with dilatation this morning 09/16, patient tolerated procedure without difficulties. Recommendations for pur ed diet with nectar consistency thickened liquids status post swallow evaluation. Patient/HCS DOES NOT want PEG tube placed if/when indicated. Patient's ex-/HCS verbalized understanding that patient's dysphasia is likely related to his dementia. * Symptom managementitching: Patient complaining of severe itchiness that is associated with a red-raised pimple-like rash on his hips, groin, left axilla and right wrist. Per patient's ex-, patient was recently treated for scabies. One-time order for Permethrin and Diphenhydramine. Will monitor, remains on contact isolation. * Symptom managementpain: Possible causes of pain include trauma status post Heimlich maneuver, infection, suspected UTI, scabies, immobility, bedbound status etc. Patient denied pain at time of exam, showing no nonverbal sites of pain such as grimacing, moaning or furrowed brow. Palliative care will continue to monitor for pain and make recommendations as indicated. * Palliative care will continue to follow this patient throughout his hospitalization to establish trust, assist with symptom management and clarification of medical treatment goals. . . (Susanne Wong) Attestation To help prompt me to consider important information that might be impacting today's encounter and assessment, information from prior notes written by myself or my colleagues may have been "brought forward" into today's note. My signature on this note, however, is an attestation that I personally performed the exam, history, and/or decision-making noted today, and, unless otherwise indicated, the interactions with patient, family, and staff as well as the review of records all occurred today. I also attest that the listed assessment and stated plan reflect my best clinical judgment today based on the combination of historical information, prior notes, and today's exam/ interactions. When time spent is documented, it refers only to time spent today by the signer, or if indicated, combined time spent today by collaborating physician/nurse practitioner. . (Susanne Wong) Collaborating MD Comments Chart reviewed. Case discussed with palliative care SIGNALER. Above SIGNALER note reviewed and I concur. . (Cuong Villegas MD) Susanne Wong Sep 17, 2016 17:30 Cuong Villegas MD Oct 31, 2016 14:51
--- NOTE | 2016-09-17 18:31 | HHI.PR ---
Subjective Remarks Follow-up for hypertension, dysphagia, Alzheimer's dementia. Mr. Chris is currently doing well. Caregiver at bedside. Patient was NPO. No fever, chills. Objective Vitals Vital Signs Date Time Temp Pulse Resp B/P Pulse Ox O2 Delivery O2 Flow Rate FiO2 09/17/16 16:48 98.8 78 16 148/76 94 09/17/16 12:00 96.5 75 16 159/86 94 09/17/16 08:08 94 21 09/17/16 08:00 98.0 84 16 142/96 93 09/17/16 04:00 97.1 84 18 150/76 94 09/17/16 00:00 97.7 83 18 156/72 93 09/16/16 21:03 92 09/16/16 20:00 98.6 85 18 158/78 93 I/O 09/16/16 09/16/16 09/16/16 09/17/16 09/17/16 09/17/16 07:00 15:00 23:00 07:00 15:00 23:00 Intake Total 565 ml 912 ml 770 ml 807 ml Balance 565 ml 912 ml 770 ml 807 ml Intake Oral 240 ml 240 ml 100 ml 120 ml IV Total 325 ml 672 ml 670 ml 687 ml # Voids 2 2 3 2 2 # Bowel Movements 2 1 Result Diagram: 09/14/16 0728 09/14/16 0728 Imaging Last Impressions Modified Barium Swallow 09/17/16 0000 Signed Impressions: Service Date/Time: September 00:00 - CONCLUSION: 1. See speech pathology report for full evaluation. Bogdan Bai MD Chest X-Ray 09/14/16 0600 Signed Impressions: Service Date/Time: Wednesday, September 14, 2016 05:40 - CONCLUSION: Left lower lobe infiltrate. Danyel Parsons Jr., MD Head CT 09/12/162112 Signed Impressions: Service Date/Time: Monday, September 12, 2016 22:00 - CONCLUSION: No acute intracranial abnormality. Moderate ventriculomegaly again noted, stable. Chronic right-sided sinusitis. Danie Vera MD Chest CT 09/12/162112 Signed Impressions: Service Date/Time: Monday, September 12, 2016 22:09 - CONCLUSION: 1. Patchy alveolar infiltrates of both lungs, nonspecific. Aspiration, noncardiogenic pulmonary edema and pulmonary hemorrhage would be in the differential. 2. No pneumothorax or pneumomediastinum. 3. Coronary artery calcification. Danie Vera MD Soft Tissue Neck X-Ray 09/12/16 0000 Signed Impressions: Service Date/Time: Monday, September 12, 2016 19:11 - CONCLUSION: No foreign body or other acute soft tissue abnormality demonstrated of the neck. Danie Vera MD Neck CT 09/12/16 0000 Signed Impressions: Service Date/Time: Monday, September 12, 2016 22:00 - CONCLUSION: Neck soft tissues within normal limits. Danie Vera MD Objective Remarks GENERAL: Alert, oriented to person. No acute distress SKIN: Warm and dry. HEAD: Normocephalic. EYES: No scleral icterus. No injection or drainage. NECK: Supple, trachea midline. No JVD or lymphadenopathy. CARDIOVASCULAR: Regular rate and rhythm without murmurs, gallops, or rubs. RESPIRATORY: Breath sounds equal bilaterally. No accessory muscle use. GASTROINTESTINAL: Abdomen soft, non-tender, nondistended. MUSCULOSKELETAL: No cyanosis, or edema. BACK: Nontender without obvious deformity. No CVA tenderness. Procedures None A/P Assessment and Plan Mr. Chris is a 81 yo WM with past medical history of Alzheimer's, hypertension, hyperlipidemia who presents to [facility] after a choking episode. Apparently he was eating dinner when he began to choke and then became unresponsive and required the Heimlich maneuver as well as some component of chest compressions as there was no palpable pulse. A food bolus was dislodged and he was subsequently responsive. His SBP was initially in 60s to 80s on arrival but responded to 1 L NS bolus and he has subsequently been normotensive. Patient is DNR and was evaluated by speech who recommended mechanical soft diet. - Advanced Alzheimer's dementia - Glaucoma - Behavior disturbances - Continue Timolol and Travatan - continue home meds - Depakote, Cymbalta, Trazodone on discharge. - Hypotension - Acute respiratory arrest due to choking. - Resolved. Currently normotensive. - Dysphagia - speech already evaluated patient. Continue pureed diet. - Patient underwent EGD with dilation size 17mm - Modified barium swallow obtained today. Speech therapy recommends pureed food with no fluid restriction. - Acute kidney injury - Creatinine 1.96 --> 1.69 (on 09/14/2016) - Probable UTI - patient received zosyn. Urine cx negative. Zosyn discontinued. DNR. SCDs. Alexandra Edmonds DO Sep 17, 2016 18:31
[2016-09-18] VITALS: BP 172/82; PULSE 78; RESP 18; TEMP 99.2; O2SAT 94
[2016-09-18 04:00] VITALS: BP 167/87; PULSE 70; RESP 17; TEMP 98.7; O2SAT 94
[2016-09-18] MEDS: CHLORHEXIDINE GLUCONATE 2 % 1 PACK (2 CLOTHS) TOP SCH (04:00)
[2016-09-18] MEDS: SODIUM CHLOR 0.9% 1000 ML INJ 1,000 ML IV SCH ×2 (04:18→16:13)
[2016-09-18 08:00] VITALS: BP 160/83; PULSE 68; RESP 18; TEMP 99.3; O2SAT 91
[2016-09-18] MEDS: SODIUM CHLORIDE 0.9% FLUSH 5 ML FLUSH IV FLUSH SCH ×2 (09:00→21:00)
[2016-09-18] MEDS: PANTOPRAZOLE SODIUM 40 MG VIAL IV PUSH SCH (10:23)
[2016-09-18] MEDS: hydrOXYzine HCL 10 MG TAB PO PRN (10:23)
[2016-09-18] MEDS: LATANOPROST 0.005% OPHT SOLN 2.5 ML BTL EACH EYE SCH (10:31)
[2016-09-18] MEDS: TIMOLOL MALEATE 0.5% OPHT SOLN 5 ML BTL EACH EYE SCH ×2 (10:31→21:00)
[2016-09-18 12:00] VITALS: BP 192/86; PULSE 70; RESP 18; TEMP 98.9; O2SAT 96
[2016-09-18] MEDS ORDERED: AMLO5TAB2 PO (12:35)
--- NOTE | 2016-09-18 12:37 | HHI.DS ---
Discharge Summary Admission Date Sep 12, 2016 at 11:44 pm Discharge Date: Sep 18, 2016 Admitting Diagnosis Cardiopulmonary Arrest, Pulm Edema/Hemorrhage (1) Dysphagia ICD Code: R13.10 (2) Dementia ICD Code: F03.90 (3) Cardiopulmonary arrest ICD Code: I46.9 Diagnosis: Principal Procedures None Brief History - From Admission 81 yo WM with past medical history of Alzheimer's, hypertension, hyperlipidemia who presents to [facility] after a choking episode. Apparently he was eating dinner when he began to choke and then became unresponsive and required the Heimlich maneuver as well as some component of chest compressions as there was no palpable pulse. A food bolus was dislodged and he was subsequently responsive. He does have baseline confusion and is typically not oriented to place or time. His ex- felt like he was more confused than typical after this episode. His SBP was initially in 60s to 80s on arrival but responded to 1 L NS bolus and he has subsequently been normotensive. He has had a couple of episodes of cough with hemoptysis reportedly about 10-[address] shows patcy bilateral infiltrates which most likely represents negative pressure pulmonary edema. He is on 2 L NC with sats 99%. [facility] has been consulted for admission. His ex- is his healthcare surrogate and she states that he has had dysphagia that has been progressive over the last year and has intermittently been on modified diet. However, she states he had been taken off of thickened liquids and was back on a "more regular diet". He feeds himself but she states he has had multiple episodes of choking "but never that bad". She states that he previously had a DNR and she feels that he would not have wanted resuscitation. She states his quality of life has been going downhill and that when "he was in his right mind he said he never wanted to live like this". She statese code status should be changed to DNR. CBC/BMP: 09/14/16 0728 09/14/16 0728 Imaging Last Impressions Modified Barium Swallow 09/17/16 0000 Signed Impressions: Service Date/Time: September 00:00 - CONCLUSION: 1. See speech pathology report for full evaluation. Bogdan Bai MD Chest X-Ray 09/14/16 0600 Signed Impressions: Service Date/Time: Wednesday, September 14, 2016 05:40 - CONCLUSION: Left lower lobe infiltrate. Danyel Parsons Jr., MD Head CT 09/12/16 2113 Signed Impressions: Service Date/Time: Monday, September 12, 2016 22:00 - CONCLUSION: No acute intracranial abnormality. Moderate ventriculomegaly again noted, stable. Chronic right-sided sinusitis. Danie Vera MD Chest CT 09/12/163 Signed Impressions: Service Date/Time: Monday, September 12, 2016 22:09 - CONCLUSION: 1. Patchy alveolar infiltrates of both lungs, nonspecific. Aspiration, noncardiogenic pulmonary edema and pulmonary hemorrhage would be in the differential. 2. No pneumothorax or pneumomediastinum. 3. Coronary artery calcification. Danie Vera MD Soft Tissue Neck X-Ray 09/12/16 0000 Signed Impressions: Service Date/Time: Monday, September 12, 2016 19:11 - CONCLUSION: No foreign body or other acute soft tissue abnormality demonstrated of the neck. Danie Vera MD Neck CT 09/12/16 0000 Signed Impressions: Service Date/Time: Monday, September 12, 2016 22:00 - CONCLUSION: Neck soft tissues within normal limits. Danie Vera MD PE at Discharge GENERAL: Alert, oriented to person. No acute distress SKIN: Warm and dry. HEAD: Normocephalic. EYES: No scleral icterus. No injection or drainage. NECK: Supple, trachea midline. No JVD or lymphadenopathy. CARDIOVASCULAR: Regular rate and rhythm without murmurs, gallops, or rubs. RESPIRATORY: Breath sounds equal bilaterally. No accessory muscle use. GASTROINTESTINAL: Abdomen soft, non-tender, nondistended. MUSCULOSKELETAL: No cyanosis, or edema. BACK: Nontender without obvious deformity. No CVA tenderness. Pt update on day of discharge Patient is doing well. He denies any chest pain, SOB, fever, chills. Per caregiver, patient is tolerating pureed food okay. Patient has been very pleasant and cooperative. Hospital Course Instruction to SNF : Please provide pureed diet indefinitely. Also, please provide assistance during meals indefinitely. Mr. Chris is a 81 yo WM with past medical history of Alzheimer's, hypertension, hyperlipidemia who presents to [facility] after a choking episode. Apparently he was eating dinner when he began to choke and then became unresponsive and required the Heimlich maneuver as well as some component of chest compressions as there was no palpable pulse. A food bolus was dislodged and he was subsequently responsive. His SBP was initially in 60s to 80s on arrival but responded to 1 L NS bolus and he has subsequently been normotensive. - Advanced Alzheimer's dementia - Glaucoma - Behavior disturbances - Continue Timolol and Travatan - Hypotension - Acute respiratory arrest due to choking. - Resolved. Currently normotensive. - Dysphagia - speech already evaluated patient. Continue pureed diet. - Patient underwent EGD with dilation size 17mm - Modified barium swallow obtained today. Speech therapy recommends pureed food with no fluid restriction. - Acute kidney injury - Creatinine 1.96 --> 1.69 (on 09/14/2016) - Probable UTI - patient received zosyn. Urine cx negative. Zosyn discontinued. IF patient does not show much improvement, consider hospice. Pt Condition on Discharge: Fair Discharge Disposition: Discharge to SNF Discharge Time: > 30 minutes Discharge Instructions DIET: Follow Instructions for: Pureed Diet Activities you can perform: Regular-No Restrictions New Medications: Amlodipine (Amlodipine) 5 Mg Tab 5 MG PO DAILY Blood Pressure Management #30 Ref 0 TAB Continued Medications: Aspirin (Aspirin) 81 Mg Chew 81 MG CHEW DAILY Ref 0 TAB Cholecalciferol (Vitamin D) 1,000 Unit Tab 2000 UNITS PO DAILY Nutritional Supplement #1 Ref 0 BOTTLE Clonazepam (Clonazepam) 0.5 Mg Tab 0.5 MG PO BID #60 Ref 0 TAB Colchicine (Colchicine) 0.6 Mg Cap 0.6 MG PO DAILY Gout Ref 0 CAP Diphenhydramine (Benadryl Allergy) 25 Mg Tab 25 MG PO Q6H PRN ALLERGIES Ref 0 TAB Divalproex Sprinkles (Depakote Sprinkles) 125 mg Cap 125 MG PO TID Control Seizures #60 Ref 0 CAP Docusate Sodium (Colace) 100 Mg Cap 100 MG PO BID PRN Constipation #[address] (Cymbalta DR) 60 Mg Capdr 60 MG PO DAILY #30 Ref 0 CAP Finasteride (Finasteride) 5 Mg Tab 5 MG PO DAILY Do not crush. Manage Prostate Problems #30 Ref 0 TAB Melatonin (Melatonin) 5 Mg Tab 3 MG PO HS Provide Good Sleep Ref 0 TAB Multiple Vitamin (Multiple Vitamin) 1 Tab 1 TAB PO DAILY Nutritional Supplement Ref 0 TAB Permethrin Topical (Elimite Topical) 5% Cream 1 APPLIC TOPICAL ONCE Scabies #1 Ref 0 TUBE Polyethylene Glycol 3350 Powder (Miralax Powder) 17 Gm Powd 17 GM PO DAILY Mix and dissolve one measuring cap-ful (17 grams) in water or juice. Constipation #1 Ref 0 BOTTLE Pyridoxine (Vitamin B-6) 200 Mg Tab 200 MG PO DAILY Nutritional Supplement #30 Ref 0 TAB Simvastatin (Simvastatin) 20 Mg Tab 20 MG PO DAILY Cholesterol Management #30 Ref 0 TAB Timolol Opth Drops (Timolol Opth Drops) 0.5 % Soln 1 DROP EACH EYE BID Glaucoma #1 Ref 0 BOTTLE Travoprost Opth Drops (Travatan Z Opth Drops) 0.004 % Soln 1 DROP EACH EYE HS Glaucoma #1 Ref 0 BOTTLE Trazodone (Trazodone) 150 Mg Tab 150 MG PO HS Control Depression #30 Ref 0 TAB Discontinued Medications: Furosemide (Lasix) 40 Mg Tab 40 MG PO DAILY #30 Ref 0 TAB Hydrocodone-Acetaminophen (Lortab) 5-325 Mg Tab 1 TAB PO Q4H PRN PAIN Ref 0 TAB Hydroxyzine HCl (Hydroxyzine HCl) 25 Mg Tab 25 MG PO TID PRN ITCHING Ref 0 TAB Metoprolol Tartrate (Metoprolol Tartrate) 25 Mg Tab 25 MG PO BID #60 Ref 0 TAB Potassium Chloride Liq (Potassium Chloride Liq) 20 Meq/15 Ml Soln 20 MEQ PO DAILY Electrolyte Replacement Ref 0 ML Prednisone (Prednisone) 10 Mg Tab 10 MG PO DAILY Ref 0 TAB Alexandra Edmonds DO Sep 18, 2016 12:37
[2016-09-18] MEDS ORDERED: ENALAPRILAT 1.25 MG/ML VIAL IV PUSH PRN (14:00)
[2016-09-18] MEDS ORDERED: hydrALAZINE HCL 10 MG TAB PO PRN (14:00)
[2016-09-18 16:00] VITALS: BP 126/72; PULSE 79; RESP 18; TEMP 99.9; O2SAT 100
--- NOTE | 2016-09-18 16:31 | HHI.PR ---
Objective Vitals Vital Signs Date Time Temp Pulse Resp B/P Pulse Ox O2 Delivery O2 Flow Rate FiO2 09/18/16 12:00 98.9 70 18 192/86 96 09/18/16 08:00 99.3 68 18 160/83 91 09/18/16 04:00 98.7 70 17 167/87 94 09/18/16 00:00 99.2 78 18 172/82 94 09/17/16 20:00 99.4 86 18 155/79 93 09/17/16 16:48 98.8 78 16 148/76 94 I/O 09/17/16 09/17/16 09/17/16 09/18/16 09/18/16 09/18/16 07:00 15:00 23:00 07:00 15:00 23:00 Intake Total 770 ml 807 ml Balance 770 ml 807 ml Intake Oral 100 ml 120 ml IV Total 670 ml 687 ml # Voids 2 2 2 # Bowel Movements 2 1 2 Result Diagram: 09/14/1672709/14/16727 Objective Remarks GENERAL: Alert, oriented to person. No acute distress SKIN: Warm and dry. HEAD: Normocephalic. EYES: No scleral icterus. No injection or drainage. NECK: Supple, trachea midline. No JVD or lymphadenopathy. CARDIOVASCULAR: Regular rate and rhythm without murmurs, gallops, or rubs. RESPIRATORY: Breath sounds equal bilaterally. No accessory muscle use. GASTROINTESTINAL: Abdomen soft, non-tender, nondistended. MUSCULOSKELETAL: No cyanosis, or edema. BACK: Nontender without obvious deformity. No CVA tenderness. Procedures None A/P Problem List: (1) Dysphagia ICD Code: R13.10 Status: Acute (2) Dementia ICD Code: F03.90 Status: Acute (3) Cardiopulmonary arrest ICD Code: I46.9 Status: Acute Assessment and Plan Mr. Chris is a 81 yo WM with past medical history of Alzheimer's, hypertension, hyperlipidemia who presents to [facility] after a choking episode. Apparently he was eating dinner when he began to choke and then became unresponsive and required the Heimlich maneuver as well as some component of chest compressions as there was no palpable pulse. A food bolus was dislodged and he was subsequently responsive. His SBP was initially in 60s to 80s on arrival but responded to 1 L NS bolus and he has subsequently been normotensive. Patient is DNR and was evaluated by speech who recommended mechanical soft diet. - Advanced Alzheimer's dementia - Glaucoma - Behavior disturbances - Continue Timolol and Travatan - continue home meds - Depakote, Cymbalta, Trazodone on discharge. - Hypotension - Acute respiratory arrest due to choking. - Resolved. Currently normotensive. - Dysphagia - speech already evaluated patient. Continue pureed diet. - Patient underwent EGD with dilation size 17mm - Modified barium swallow obtained today. Speech therapy recommends pureed food with no fluid restriction. - Acute kidney injury - Creatinine 1.96 --> 1.69 (on 09/14/2016) - Probable UTI - patient received zosyn. Urine cx negative. Zosyn discontinued. DNR. SCDs. Alexandra Edmonds DO Sep 18, 2016 16:30
--- NOTE | 2016-09-18 16:52 | HHI.HCPN ---
Reason for visit a. To assist with evaluation and management of symptoms including: Itching, dysphagia, confusion b. To assist medical decision maker(s) with: better understanding of current medical conditions; weighing benefits/burdens of medical treatment options; making medical treatment decisions. . (Susanne Wong) Subjective/Interval History Patient seen and assessed in room 725. Also present, patient's ex-/HCS ( Kimberly Chris). Patient remains confused, requiring frequent redirection. Oriented to self only. Pleasant. Soft restraints off, patient must be restraint free for 24 hours before being discharged back to sleep. Speech therapy was consulted and evaluated patient for dysphagia likely secondary to Alzheimer's dementia. Status post EGD with dilatation and barium swallow. Subsequent recommendations were made for a mechanical soft diet and nectar consistency thickened liquids. Speech therapy will continue to follow this patient to ensure the patient is taking small bites/sips during meals and sitting upright. Patient will require feeding assist at nursing facility upon discharge. Patient/family met with hospice yesterday. Kimberly (ex-) does not feel the patient is ready for hospice at this time, but she is open to continued communication and follow-up stating he will eventually need it. . . Family/friend interactions Spoke to patient and ex- (Kimberly) at bedside. . (Susanne Wong) Advance Directives Living Will: Completed, but not made available Health Care Surrogate: Copy in medical record Durable Power of [employer]: Copy in medical record (Susanne Wong) Advance Directive Specifics Date completed: 03/14/2014 . Health Care Surrogate(s): Patient' sponsor/former spouse, Kimberly Chris, is the designated health care surrogate. Tiago Antunez is designated as the alternate health care surrogate. . Documented care wishes: Living will completed per [facility] who will bring a copy to [facility] on her next visit. . Significant change in goals: Return to [facility] without hospice services, hospice will continue to follow patient. . (Susanne Wong) Objective Vital Signs Date Time Temp Pulse Resp B/P Pulse Ox O2 Delivery O2 Flow Rate FiO2 09/18/16 12:00 98.9 70 18 192/86 96 09/18/16 08:00 99.3 68 18 160/83 91 09/18/16 04:00 98.7 70 17 167/87 94 09/18/16 00:00 99.2 78 18 172/82 94 09/17/16 20:00 99.4 86 18 155/79 93 09/17/16 16:48 98.8 78 16 148/76 94 Intake & Output 09/18/16 09/18/16 07:00 19:00 # Voids 2 # Bowel Movements 2 . Physical Exam CONSTITUTIONAL/GENERAL: This is an adequately nourished elderly, male patient in no apparent distress. TUBES/LINES/DRAINS: PIV x 1 SKIN: No wounds seen anteriorly. Skin temperature appropriate. Not diaphoretic. HEAD: Atraumatic. Normocephalic. ENT: Hearing grossly normal. Nose without bleeding or purulent drainage. NECK: Trachea midline. CARDIOVASCULAR: Regular rate and rhythm. No JVD. Peripheral pulses symmetric. RESPIRATORY/CHEST: Symmetric, unlabored respirations. Clear to auscultation. No wheezes, rales, or rhonchi. GASTROINTESTINAL: Abdomen soft, nondistended. No guarding. Bowel sounds present. GENITOURINARY: Without palpable bladder distension. MUSCULOSKELETAL: Extremities without clubbing or cyanosis. NEUROLOGICAL: Oriented to self. Follows commands. Moves all extremities. PSYCHIATRIC: No obvious anxiety/depression. No apparent hallucinations or other psychotic thought process. . (Susanne Wong) Diagnostic Tests Laboratory Laboratory Tests Test 09/14/16 07:28 White Blood Count 11.1 TH/MM3 Red Blood Count 3.90 MIL/MM3 Hemoglobin 11.0 GM/DL Hematocrit 32.6 % Mean Corpuscular Volume 83.5 FL Mean Corpuscular Hemoglobin 28.1 PG Mean Corpuscular Hemoglobin 33.7 % Concent Red Cell Distribution Width 13.6 % Platelet Count 228 TH/MM3 Mean Platelet Volume 8.3 FL Neutrophils (%) (Auto) 70.3 % Lymphocytes (%) (Auto) 14.7 % Monocytes (%) (Auto) 9.7 % Eosinophils (%) (Auto) 5.0 % Basophils (%) (Auto) 0.3 % Neutrophils # (Auto) 7.8 TH/MM3 Lymphocytes # (Auto) 1.6 TH/MM3 Monocytes # (Auto) 1.1 TH/MM3 Eosinophils # (Auto) 0.6 TH/MM3 Basophils # (Auto) 0.0 TH/MM3 CBC Comment DIFF FINAL Differential Comment Sodium Level 145 MEQ/L Potassium Level 3.8 MEQ/L Chloride Level 109 MEQ/L Carbon Dioxide Level 26.5 MEQ/L Anion Gap 10 MEQ/L Blood Urea Nitrogen 21 MG/DL Creatinine 1.69 MG/DL Estimat Glomerular Filtration 39 ML/MIN Rate Random Glucose 98 MG/DL Calcium Level 8.6 MG/DL . (Susanne Wong) Result Diagram: 09/14/16 0728 09/14/16 0728 Procedures 09/16/16: EGD with dilatation 09/17/16: Barium swallow evaluation . . (Susanne Wong) Assessment and Plan Disease Oriented Problem List: (1) Hypertension (2) BPH (benign prostatic hyperplasia) (3) Dyslipidemia (4) Encephalopathy (5) Sepsis (6) Dementia (7) Pulmonary hemorrhage (8) Cardiopulmonary arrest (9) UTI (urinary tract infection) (10) Hypoxic episode Symptom Scale: (1) Dysphagia Comment: Recommendations for pured diet with nectar consistency thickened liquids status post all evaluation. Patient/HCS DOES NOT want PEG tube placed if/when indicated. Patient's ex-/HCS verbalized understanding that patient' s dysphasia is likely related to his dementia. Status post EGD with dilatation and barium swallow evaluation. . (2) Pain Comment: Patient reports no pain at exam. . (3) Itching Comment: Patient complaining of severe itchiness that is associated with a red- raised pimple-like rash on his hips, groin, left axilla and right wrist- now resolving. Per patient's ex-, patient was recently treated for scabies. Permethrin and Diphenhydramine ordered. Will monitor, remains on contact isolation. . Pertinent Non-Medical Issues Psychosocial:Mr. Chris was born in [place]. He has 2 sisters and 4 brothers. The patient has no children. 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 He met Lesvia (his ex-) in 2002,they were for approximately 7 years. Patient's states he was much older than her when they meet as he got older they grew apart. She moved back in with him 6 months after they because of his dementia and safety concerns. Spiritual: None. Legal: Patient's ex-, Lesvia Chris, is the designated health care surrogate. Ethical issues impacting care: No known ethical issues impacting care at this time. . Important Contacts Kimberly hCris, sponsor/former spouse: [phone] . Prognosis Patient is a 81 year male patient with advanced dementia status post a choking episode. Patient has had increased difficulty swallowing with multiple episodes of choking. He is wheelchair dependent and requires assist with all ADLs. He is unable to bear weight and a Brian lift is needed for transfers. He is incontinent of bowel and bladder. Oriented to self only and at time speech is nonsensical. . Code Status: No Code Plan * NO CODE * Decision-making: Patient' sponsor/former spouse, Kimberly Chris, is the designated health care surrogate. Tiago Antunez is designated as the alternate health care surrogate. * Goals: Return to [facility] without hospice services, hospice will continue to follow patient. Remain on pureed diet to prevent further episodes of aspiration. * Patient's ex-/HCS (Kimberly Chris) states that the patient previously had a DNR, and she feels that he would not have wanted resuscitation. He has a community DNR at the facility where he is a resident. Kimberly states the patient 's quality of life has been going downhill and that when "he was in his right mind he said he never wanted to live like this". CODE STATUS changed to NO CODE 09/12/16. * Patient/family met with hospice yesterday. Kimberly (ex-) does not feel the patient is ready for hospice at this time, but she is open to continued communication and follow-up stating he will eventually need it. * Symptom managementdysphasia: Speech therapy was consulted and evaluated patient for dysphagia likely secondary to Alzheimer's dementia. Status post EGD with dilatation and barium swallow. Subsequent recommendations were made for a mechanical soft diet and nectar consistency thickened liquids. Speech therapy will continue to follow this patient to ensure the patient is taking small bites/sips during meals and sitting upright. Patient will require feeding assist at nursing facility upon discharge. * Symptom managementitching: Patient complaining of severe itchiness that is associated with a red-raised pimple-like rash on his hips, groin, left axilla and right wrist- now resolved Per patient's ex-, patient was recently treated for scabies. On Permethrin and Diphenhydramine. Will monitor, remains on contact isolation. * Symptom managementpain: Possible causes of pain include trauma status post Heimlich maneuver, infection, suspected UTI, scabies, immobility, bedbound status etc. Patient denied pain at time of exam, showing no nonverbal sites of pain such as grimacing, moaning or furrowed brow. Palliative care will continue to monitor for pain and make recommendations as indicated. * Palliative care will continue to follow this patient throughout his hospitalization to establish trust, assist with symptom management and clarification of medical treatment goals. . . (Susanne oWng) Attestation To help prompt me to consider important information that might be impacting today's encounter and assessment, information from prior notes written by myself or my colleagues may have been "brought forward" into today's note. My signature on this note, however, is an attestation that I personally performed the exam, history, and/or decision-making noted today, and, unless otherwise indicated, the interactions with patient, family, and staff as well as the review of records all occurred today. I also attest that the listed assessment and stated plan reflect my best clinical judgment today based on the combination of historical information, prior notes, and today's exam/ interactions. When time spent is documented, it refers only to time spent today by the signer, or if indicated, combined time spent today by collaborating physician/nurse practitioner. . (Susanne Wong) Collaborating MD Comments Chart reviewed. Case discussed with palliative care [employer]. Above WHIT note reviewed and I concur. . (Cuong Villegas MD) Susanne Wong Sep 18, 2016 16:52 Cuong Villegas MD Oct 31, 2016 14:48
[2016-09-18 19:00] VITALS: BP 170/86; PULSE 75; RESP 17; TEMP 98.6; O2SAT 100
[2016-09-19] VITALS: BP 163/78; PULSE 73; RESP 17; TEMP 97.3; O2SAT 95
[2016-09-19] MEDS: CHLORHEXIDINE GLUCONATE 2 % 1 PACK (2 CLOTHS) TOP SCH (04:00)
[2016-09-19] MEDS: SODIUM CHLOR 0.9% 1000 ML INJ 1,000 ML IV SCH (04:08)
[2016-09-19] MEDS: PANTOPRAZOLE SODIUM 40 MG VIAL IV PUSH SCH (08:15)
--- NOTE | 2016-09-19 08:19 | HHI.PR ---
Subjective Remarks resting comfortably with no distress. denies pain. off restraints. d/w the RN and no acute issues over night. Objective Vitals Vital Signs Date Time Temp Pulse Resp B/P Pulse Ox O2 Delivery O2 Flow Rate FiO2 09/19/16 00:00 97.3 73 17 163/78 95 09/18/16 19:00 98.6 75 17 170/86 100 09/18/16 16:00 99.9 79 18 126/72 100 09/18/16 12:00 98.9 70 18 192/86 96 I/O 09/18/16 09/18/16 09/18/16 09/19/16 09/19/16 09/19/16 07:00 15:00 23:00 07:00 15:00 23:00 Intake Total 240 ml Output Total 300 ml 100 ml Balance -60 ml -100 ml Intake Oral 240 ml Output Urine Total 300 ml 100 ml # Voids 2 3 # Bowel Movements 2 2 Imaging Last Impressions Modified Barium Swallow 09/17/16 0000 Signed Impressions: Service Date/Time: September 00:00 - CONCLUSION: 1. See speech pathology report for full evaluation. Bogdan Bai MD Chest X-Ray 09/14/16 0600 Signed Impressions: Service Date/Time: Wednesday, September 14, 2016 05:40 - CONCLUSION: Left lower lobe infiltrate. Danyel Parsons Jr., MD Head CT 09/12/162112 Signed Impressions: Service Date/Time: Monday, September 12, 2016 22:00 - CONCLUSION: No acute intracranial abnormality. Moderate ventriculomegaly again noted, stable. Chronic right-sided sinusitis. Danie Vera MD Chest CT 09/12/162112 Signed Impressions: Service Date/Time: Monday, September 12, 2016 22:09 - CONCLUSION: 1. Patchy alveolar infiltrates of both lungs, nonspecific. Aspiration, noncardiogenic pulmonary edema and pulmonary hemorrhage would be in the differential. 2. No pneumothorax or pneumomediastinum. 3. Coronary artery calcification. Danie Vera MD Soft Tissue Neck X-Ray 09/12/16 0000 Signed Impressions: Service Date/Time: Monday, September 12, 2016 19:11 - CONCLUSION: No foreign body or other acute soft tissue abnormality demonstrated of the neck. Danie Vera MD Neck CT 09/12/16 0000 Signed Impressions: Service Date/Time: Monday, September 12, 2016 22:00 - CONCLUSION: Neck soft tissues within normal limits. Danie Vera MD Objective Remarks GENERAL: This is a well-nourished, well-developed patient, in no apparent distress. CARDIOVASCULAR: Regular rate and regular rhythm without murmurs, gallops, or rubs. RESPIRATORY: Clear to auscultation. Breath sounds equal bilaterally. No wheezes , rales, or rhonchi. GASTROINTESTINAL: Abdomen soft, non-tender, nondistended. Normal, active bowel sounds MUSCULOSKELETAL: no pedal edema. NEURO: Awake and alert. Procedures EGD Medications and IVs Current Medications IV Flush 2 ml 2 ml UNSCH PRN IVF FLUSH AFTER USING IV ACCESS; Start 09/12/16 at 19:15; Stop 09/13/16 at 05:15; Status DC Sodium Chloride 250 ml @ 15 mls/hr ONCE ONCE IV ; Start 09/12/16 at 21:30; Stop 09/13/16 at 14:09; Status DC Piperacillin Sod/ Tazobactam Sod 50 ml @ 100 mls/hr ONCE ONCE IV Last administered on 09/12/16at 22:22; Start 09/12/16 at 21:30; Stop 09/12/16 at 21 :59; Status DC Vancomycin HCl 1500 mg/Sodium Chloride 515 ml @ 257.5 mls/ hr Q24H IV Last administered on 09/12/16at 22:24; Start 09/12/16 at 21:30; Stop 09/13/16 at 07: 10; Status DC Pantoprazole Sodium 80 mg/ Sodium Chloride 35 ml @ 420 mls/hr ONCE ONCE IV Last administered on 09/12/16at 22:23; Start 09/12/16 at 21:30; Stop 09/13/16 at 07:12; Status DC Pantoprazole Sodium/Sodium Chloride (Protonix Inj/NS Inj) 100 ml @ 10 mls/hr Q10H IV Last administered on 09/12/16at 22:23; Start 09/12/16 at 21:30; Stop 09/13/16 at 07:12; Status DC Iodixanol 46 ml 46 ml STK-MED ONCE IV Last administered on 09/12/16at 22:11; Start 09/12/16 at 22:11; Stop 09/12/16 at 22:12; Status DC Sodium Chloride (NS 1000 ml Inj) 1,000 ml @ 84 mls/hr [id number] IV Last administered on 09/17/16 06:26; Start 09/13/16 at 05:08 IV Flush (NS Flush) 2 ml UNSCH PRN IV FLUSH FLUSH AFTER USING IV ACCESS; Start 09/13/16 at 05:15 IV Flush (NS Flush) 2 ml BID IV FLUSH Last administered on 09/17/16 23:06; Start 09/13/16 at 09:00 Ondansetron HCl (Zofran Inj) 4 mg Q6H PRN IV NAUSEA OR VOMITING; Start 09/13/16 at 05:15 Albuterol/ Ipratropium (Duoneb Neb) 1 ampule Q4HR NEB INH Last administered on 09/17/16 05:00; Start 09/13/16 at 08:00; Stop 09/17/16 at 08:00; Status DC Albuterol Sulfate (Albuterol Neb) 2.5 mg Q2HR NEB PRN INH SOB/WHEEZING; Start 09/13/16 at 05:15 Miscellaneous Information 1 [id number] XX ; Start 09/13/16 at 05:15 Chlorhexidine Gluconate (Chlorhexidine 2% Cloth) Taper DAILY@04 TOP ; Start 09/14 at 04:00; Stop 09/10/17 at 03:59 Chlorhexidine Gluconate 3 pack 3 pack UNSCH PRN TOP HYGIENIC CARE; Start at 05:15 Piperacillin Sod/ Tazobactam Sod (Zosyn 2.25 Gm Premix) 50 ml @ 100 mls/hr Q8HR IV Last administered on 09/13/16 06:18; Start 09/13/16 at 06:00; Stop at 11:12; Status DC Pantoprazole Sodium (Protonix Inj) 40 mg Q24H IV PUSH Last administered on 10:23; Start 09/13/16 at 08:15 Timolol Maleate (Timoptic 0.5% Opt Soln) 1 drop BID EACH EYE Last administered on 09/18/16 10:31; Start 09/13/16 at 09:00 Latanoprost 1 drop 1 drop DAILY EACH EYE Last administered on 09/18/16 10:31; Start 09/13/16 at 10:00 Piperacillin Sod/ Tazobactam Sod (Zosyn 2.25 Gm Premix) 50 ml @ 100 mls/hr Q6HR IV Last administered on 09/15/16 10:32; Start 09/13/16 at 12:00; Stop at 12:05; Status DC Permethrin (Elimite 5% Cream) 1 applic ONCE ONCE TOPICAL Last administered on 09/14/16 23:10; Start 09/14/16 at 20:00; Stop 09/14/16 at 20:01; Status DC Diphenhydramine HCl (Benadryl) 25 mg ONCE ONCE PO Last administered on 23:10; Start 09/14/16 at 19:15; Stop 09/14/16 at 19:16; Status DC Propofol (Diprivan 200 Mg/20 ml Inj) 130 mg STK-MED ONCE IV ; Start 09/16/16 at 10:19; Stop 09/16/16 at 10:34; Status DC Hydroxyzine HCl (Atarax) 10 mg Q8H PRN PO ITCHING Last administered on 10:23; Start 09/16/16 at 16:30 Lactulose (Lactulose Liq) 30 ml BID PRN PO CONSTIPATION; Start 09/16/16 at 23:00 Enalaprilat (Vasotec Inj) 1.25 mg Q8H PRN IV PUSH SBP>160, DBP>90; Start at 14:00 Hydralazine HCl (Apresoline) 10 mg Q8HR PRN PO SBP>160, DBP>90 Last administered on 09/18/16 15:00; Start 09/18/16 at 14:00 A/P Assessment and Plan - Advanced Alzheimer's dementia - Glaucoma - Behavior disturbances - Continue Timolol and Travatan - continue home meds - Depakote, Cymbalta, Trazodone on discharge. - Hypotension-resolved- now with elevated BP's- will discharge on norvasc- f/u as outpatient. - Acute respiratory arrest due to choking. - Resolved. - Dysphagia - speech already evaluated patient. Continue pureed diet. - Patient underwent EGD with dilation size 17mm - Modified barium swallow obtained today. Speech therapy recommends pureed food with no fluid restriction. - Acute kidney injury - Creatinine 1.96 --> 1.69 (on 09/14/2016) - Probable UTI - patient received zosyn. Urine cx negative. Zosyn discontinued. DNR. SCDs. palliative care follow-up appreciated. Discharge Planning dc to SNF today. see med list. f/u by PCP. d/w the RN. Hiren Welsh MD Sep 19, 2016 08:19
--- NOTE | 2016-09-19 08:20 | HHI.DCPOC ---
Discharge Care Plan Diagnosis: (1) Dysphagia Additional Problems difficulty swallowing. Goals to Promote Your Health * To prevent worsening of your condition and complications * To maintain your health at the optimal level Directions to Meet Your Goals Take your medications as prescribed Follow your dietary instruction Follow activity as directed Keep your appointments as scheduled Take your immunizations and boosters as scheduled If your symptoms worsen call your PCP, if no PCP go to Urgent Care Center or Emergency Room Smoking is Dangerous to Your Health. Avoid second hand smoke Call the 24-hour hour crisis hotline for domestic abuse at Hiren Welsh MD Sep 19, 2016 08:20
[2016-09-19] MEDS ORDERED: PROT40TA PO (08:23)
[2016-09-19 09:15] VITALS: BP 173/85; PULSE 80; RESP 20; TEMP 97.6; O2SAT 97
== END 2016-09-19 10:18 | DRG 205 ==
LOC: NEPC 18:33 → NEDA 23:44 → NEDH 09-13 04:49 → HCIS 09-13 15:22 → HOCB 09-15 14:18
PROVIDERS: ADMIT Internal Medicine; ATTEND Internal Medicine
PROC: 3E0F7GC Introduction of Other Therapeutic Substance into Respiratory Tract, Via Natural or Artificial Opening (ICD-10-PCS; principal; 2016-09-12)
PROC: 0DB48ZX Excision of Esophagogastric Junction, Via Natural or Artificial Opening Endoscopic, Diagnostic (ICD-10-PCS; 2016-09-16)
PROC: 0DB68ZX Excision of Stomach, Via Natural or Artificial Opening Endoscopic, Diagnostic (ICD-10-PCS; 2016-09-16)
PROC: 0D758DZ Dilation of Esophagus with Intraluminal Device, Via Natural or Artificial Opening Endoscopic (ICD-10-PCS; 2016-09-16)
DX: T17.920A Food in respiratory tract, part unspecified causing asphyxiation, initial encounter (principal); I46.9 Cardiac arrest, cause unspecified; N17.9 Acute kidney failure, unspecified; J81.1 Chronic pulmonary edema; K22.2 Esophageal obstruction; N39.0 Urinary tract infection, site not specified; R04.2 Hemoptysis; R04.89 Hemorrhage from other sites in respiratory passages; G62.9 Polyneuropathy, unspecified; R13.10 Dysphagia, unspecified; G30.9 Alzheimer's disease, unspecified; F02.80 Dementia in other diseases classified elsewhere, unspecified severity, without behavioral disturbance, psychotic disturbance, mood disturbance, and anxiety; H91.90 Unspecified hearing loss, unspecified ear; M79.7 Fibromyalgia; F41.9 Anxiety disorder, unspecified; F32.9 Major depressive disorder, single episode, unspecified; K21.9 Gastro-esophageal reflux disease without esophagitis; H40.9 Unspecified glaucoma; I10 Essential (primary) hypertension; Z99.3 Dependence on wheelchair; Z66 Do not resuscitate; E78.5 Hyperlipidemia, unspecified; N40.0 Benign prostatic hyperplasia without lower urinary tract symptoms; Z96.643 Presence of artificial hip joint, bilateral; D64.9 Anemia, unspecified; Z51.5 Encounter for palliative care; M54.9 Dorsalgia, unspecified; R21 Rash and other nonspecific skin eruption; Z87.891 Personal history of nicotine dependence; Z82.49 Family history of ischemic heart disease and other diseases of the circulatory system; Z80.42 Family history of malignant neoplasm of prostate; X58.XXXA Exposure to other specified factors, initial encounter; Y93.89 Activity, other specified; Y92.129 Unspecified place in nursing home as the place of occurrence of the external cause; B86 Scabies; R15.9 Full incontinence of feces; R32 Unspecified urinary incontinence
CPT/HCPCS: 70360; 70450; 70490; 71010; 71020; 71260; 74230; 80048; 80053; 81001; 83605; 83880; 84484; 85007; 85025; 85027; 85610; 85730; 86850; 86900; 86901; 87086; 88305; 88312; 93005; 93306; 94640; 94664; 96365; 96368; 96375; 99292; C1769; C9113; J2543; J3370; J7030; J7040; Q9967